=== PATIENT | female | born 1935 | race Caucasian/White ===

== ENCOUNTER 2020-01-18 12:02 | Inpatient (IN) | payer MEDICARE, OTHER ==
[2020-01-18] MEDS ORDERED: Polyethylene Glycol 3350 Powder 17 GM Packet PO PRN (12:46)
--- NOTE | 2020-01-18 13:04 | PCM.HP.2 ---
H&P History of Present Illness - General Date of Service: 01/18/20 Admit Problem/Dx: Admission Diagnosis/Problem Admission Diagnosis/Problem Knee joint operation Source of Information: Patient, Old Records History Limitations: Reports: No Limitations - History of Present Illness Initial Comments - Free Text/Narative: Pt here for swing bed admit after undergoing left TKA Pt doing well and here for OT/PT Location: Reports: Lower Extremity, Left Context: Reports: Other (Post-OP) - Related Data Allergies/Adverse Reactions: Allergies Allergy/AdvReac Type Severity Reaction Status Date / Time bacitracin Allergy Cannot Verified 01/18/20 11:59 [From Neosporin Remember ([id number])] neomycin Allergy Cannot Verified 01/18/20 11:59 [From Neosporin Remember ([id number])] polymyxin B Allergy Cannot Verified 01/18/20 11:59 [From Neosporin Remember ([id number])] Home Medications: Home Meds Acetaminophen 650 mg PO Q6HR PRN 01/18/20 [History] Apixaban [Eliquis] 2.5 mg PO Q12HR 01/18/20 [History] Ascorbic Acid [Vitamin C] 500 mg PO DAILY 01/18/20 [History] Calcium Carb/Vit D3/Minerals [Calcium 600+D Plus Minerals] 1 each PO DAILY 01/18 [History] Cholecalciferol (Vitamin D3) [Vitamin D3] 1,000 unit PO DAILY 01/18/20 [History] Escitalopram [Lexapro] 10 mg PO DAILY 01/18/20 [History] Furosemide 20 mg PO DAILY@1600 01/18/20 [History] Glimepiride 1 mg PO DAILY 01/18/20 [History] Losartan [Cozaar] 50 mg PO DAILY 01/18/20 [History] Magnesium 250 mg PO DAILY 01/18/20 [History] Multivitamin [Daily Eri] 1 each PO DAILY 01/18/20 [History] Sennosides/Docusate Sodium [Senna-Docusate Sodium Tablet] 1 each PO BID [History] atorvaSTATin [Lipitor] 20 mg PO BEDTIME 01/18/20 [History] carvediloL [Carvedilol] 12.5 mg PO BIDMEALS 01/18/20 [History] oxyCODONE 5 - 10 mg PO Q6HR PRN 01/18/20 [History] polyethylene glycoL 3350 [MiraLAX] 17 gm PO DAILY PRN 01/18/20 [History] H&P Review of Systems - Review of Systems: Review Of Systems: See Below Pulmonary: Reports: No Symptoms Cardiovascular: Reports: No Symptoms Gastrointestinal: Reports: No Symptoms Musculoskeletal: Reports: Other (Left knee TKA) Skin: Reports: No Symptoms Exam - Exam Exam: See Below - Vital Signs Weight: 203 lb 6.4 oz - Exam General: Alert, Oriented Lungs: Clear to Auscultation Cardiovascular: Regular Rate GI/Abdominal Exam: Soft, Non-Tender Extremities: Other (Left knee dressing intact) *Q Meaningful Use (ADM) - VTE *Q VTE Pharmacological Contraindications *Q: Risk of Bleeding - Problem List (1) S/P total knee arthroplasty SNOMED Code(s): 6373549781489, [id number], [id number] ICD Code: Z96.659 - PRESENCE OF UNSPECIFIED ARTIFICIAL KNEE JOINT Status: Acute Current Visit: Yes Problem List Initiated/Reviewed/Updated: Yes Orders Last 24hrs: Active Orders 24 hr Category Date Time Status Patient Status [ADT] Routine ADT 01/18/20 12:50 Ordered Ambulate [RC] ASDIRECTED Care 01/18/20 12:50 Ordered Ambulate [RC] ASDIRECTED Care 01/18/20 12:50 Ordered Antiembolic Devices [RC] PER UNIT ROUTINE Care 01/18/20 12:55 Ordered Bedrest Bathroom Privileges [RC] ASDIRECTED Care 01/18/20 12:50 Ordered Blood Glucose Check, Bedside [RC] BIDMEALS Care 01/18/20 12:50 Ordered Elevate Extremity [RC] QID Care 01/18/20 12:50 Ordered Height and Weight [RC] PER UNIT ROUTINE Care 01/18/20 12:53 Ordered May Shower [RC] ASDIRECTED Care 01/18/20 12:50 Ordered Oxygen Therapy [RC] PRN Care 01/18/20 12:50 Ordered Up With Assistance [RC] ASDIRECTED Care 01/18/20 12:50 Ordered Up to Chair [RC] ASDIRECTED Care 01/18/20 12:50 Ordered VTE/DVT Education [RC] PER UNIT ROUTINE Care 01/18/20 12:50 Ordered Vital Signs [RC] PER UNIT ROUTINE Care 01/18/20 12:50 Ordered Wound Care [RC] DAILY Care 01/18/20 12:50 Ordered OT Evaluation and Treatment [CONS] Routine Cons 01/18/20 12:50 Ordered PT Evaluation and Treatment [CONS] Routine Cons 01/18/20 12:50 Ordered [employer] Diet [DIET] Diet 01/18/20 Lunch Ordered Acetaminophen [Tylenol] Med 01/18/20 12:46 Ordered 650 mg PO Q6HR PRN Apixaban [Eliquis] Med 01/18/20 20:00 Ordered 2.5 mg PO Q12HR Ascorbic Acid [Vitamin C] Med 01/19/20 08:00 Ordered 500 mg PO DAILY Calcium Carb/Vit D3/Minerals [Calcium 600+D Plus Med 01/19/20 08:00 Ordered Minerals] 1 each PO DAILY Cholecalciferol (Vitamin D3) [Vitamin D3] Med 01/19/20 08:00 Ordered 1,000 unit PO DAILY Docusate Sodium/Sennosides [Senna Plus] Med 01/18/20 18:00 Ordered 1 each PO BID Escitalopram [Lexapro] Med 01/19/20 08:00 Ordered 10 mg PO DAILY Furosemide [Lasix] Med 01/18/20 16:00 Ordered 20 mg PO DAILY@1600 Glimepiride [Glimepiride] Med 01/19/20 08:00 Ordered 1 mg PO DAILY Losartan [Cozaar] Med 01/19/20 08:00 Ordered 50 mg PO DAILY Magnesium [Magnesium] Med 01/19/20 08:00 Ordered 250 mg PO DAILY Multivitamins [Tab-A-Eri] Med 01/19/20 08:00 Ordered 1 each PO DAILY atorvaSTATin [Lipitor] Med 01/18/20 20:00 Ordered 20 mg PO BEDTIME carvediloL [Coreg] Med 01/18/20 17:30 Ordered 12.5 mg PO BIDMEALS oxyCODONE Med 01/18/20 12:46 Ordered 5 - 10 mg PO Q6HR PRN polyethylene glycoL 3350 [MiraLAX] Med 01/18/20 12:46 Ordered 17 gm PO DAILY PRN Antiembolic Hose [OM.PC] Per Unit Routine Oth 01/18/20 12:54 Ordered Ice Therapy [OM.PC] Routine Oth 01/18/20 12:50 Ordered Resuscitation Status Routine Resus Stat 01/18/20 12:50 Ordered Medication Orders Acetaminophen (Tylenol) 650 mg PO Q6HR PRN PRN Reason: Pain Apixaban (Eliquis) 2.5 mg PO Q12HR [facility] Ascorbic Acid (Vitamin C) 500 mg PO DAILY [facility] Carvedilol (Coreg) 12.5 mg PO BIDMEALS [facility] Furosemide (Lasix) 20 mg PO DAILY@1600 [facility] Losartan Potassium (Cozaar) 50 mg PO DAILY [facility] Multivitamins/Minerals/Vitamin C (Tab-A-Eri) tab PO DAILY [facility] Non-Formulary Medication (Atorvastatin [Lipitor]) 20 mg PO BEDTIME [facility] Non-Formulary Medication (Calcium Carb/Vit D3/Minerals [Calcium 600+D Plus Minerals]) 1 each PO DAILY [facility] Non-Formulary Medication (Cholecalciferol (Vitamin D3) [Vitamin D3]) 1,000 unit PO DAILY [facility] Non-Formulary Medication (Escitalopram [Lexapro]) 10 mg PO DAILY [facility] Non-Formulary Medication (Glimepiride [Glimepiride]) 1 mg PO DAILY [facility] Non-Formulary Medication (Magnesium [Magnesium]) 250 mg PO DAILY [facility] Oxycodone HCl (Oxycodone) 5 - 10 mg PO Q6HR PRN PRN Reason: Moderate to Severe Pain Polyethylene Glycol (Miralax) 17 gm PO DAILY PRN PRN Reason: Constipation Senna/Docusate Sodium (Senna Plus) tab PO BID [facility] Assessment/Plan Comment:: Imp: Left knee TKA Plan: Admit to swing bed PT/OT consult
--- OUTSIDE RECORDS SUMMARY | 2020-01-18 13:05 | XMSREPORT ---
:1935 Author Organization [facility] Address [address] [place] [address] [address] [place] [address] Care Team Providers Name Role Phone Eric James MD Primary Care Provider Eric James MD Attributed Provider Reason for Referral Home Health Evaluation (Routine) Status Reason Specialty Diagnoses / Referred By Referred To Procedures Contact Contact New Request Continuity of Diagnoses Total knee replacement status, left Arielle Wiggins [facility], [facility] [address], [place] [address] Scheduling Instructions This referral will be electronically faxed to the home health agency chosen above. Any other follow up with the home health agency should be done per facility policy. Reason for Visit Auth/Cert (Routine) Status Reason Specialty Diagnoses / Procedures Referred By Contact Referred To Contact Diagnoses Unilateral primary osteoarthritis, left knee Marv Almonte MD Procedures ARTHROPLASTY KNEE CONDYLE & [facility] MEDIAL & LAT COMPARTMENTS [facility] [address] [place] [id number] Encounter Details Date Type Department Care Team Description 01/15/2020 - Hospital Encounter [facility] Suzy, S/P total knee 01/18/[address] MD Marv arthroplasty [address] [place] [address] [place], [place] [phone] [id number] [phone] Allergies Active Allergy Reactions Severity Noted Date Comments Aruiqzli-Slfxtjwkqa-Lrkopfbak Rash 04/09/2016 documented as of this encounter (statuses as of 01/18/2020) Medications Medication Sig Dispensed Refills Start End Date Status Date lancets (ACCU-CHEK FOR TESTING 102 box 1 Active FASTCLIX)Indicatio BLOOD SUGAR ONCE 9 ns: Controlled DAILY DX E11.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) blood glucose test FOR TESTING 50 Strip 2 Active strip (ACCU-CHEK BLOOD SUGAR ONCE 9 SMARTVIEW)Indicati DAILY DX ons: Controlled E11.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) Calcium Take 1 tablet by 0 Active Carbonate-Vit mouth 1 time per 0 D-Min day (CALCIUM-VITAMIN D-MINERALS) 600-800 MG-UNIT CHEWIndications: Preventative health care magnesium oxide Take 1 tablet 30 tablet 0 Active 250 mg (250 mg) by 0 tabletIndications: mouth 1 time per Preventative day health care Multiple Vitamin Take 1 tablet by 0 Active (MULTIVITAMIN) mouth 1 time per 0 tabletIndications: day Preventative health care vitamin C, Take 1 tablet 60 tablet 0 Active ascorbic acid, 500 (500 mg) by 0 MG mouth 1 time per tabletIndications: day Preventative health care vitamin D3, Take 1 tablet 30 tablet 0 Active cholecalciferol, (1,000 Units) by 0 1000 units mouth 1 time per tabletIndications: day Preventative health care atorvaSTATin Take 1 tablet 90 tablet 3 Active (LIPITOR) 20 mg (20 mg) by mouth 0 tabletIndications: 1 time per day Hyperlipidemia, unspecified hyperlipidemia type escitalopram Take 1 tablet 90 tablet 3 Active (LEXAPRO) 10 mg (10 mg) by mouth 0 tabletIndications: 1 time per day Mood disorder (HCC) acetaminophen Take 2 tablets 0 Active (TYLENOL) 325 mg (650 mg) by 0 tabletIndications: mouth every 6 Total knee hours as needed replacement for mild pain status, left glimepiride Take 1 tablet (1 90 tablet 3 Active (AMARYL) 1 mg mg) by mouth 1 0 tabletIndications: time a day with Fasting breakfast hyperglycemia polyethylene Take 3 1 Bottle 0 Active glycol (MIRALAX) teaspoonsful (17 0 powderIndications: g) by mouth 1 Total knee time a day as replacement needed for status, right constipation carVEDilol (COREG) Take 1 tablet 0 Active 12.5 mg (12.5 mg) by 0 tabletIndications: mouth 2 times a Essential day with meals hypertension losartan 50 mg Take 1 tablet 0 Active tabletIndications: (50 mg) by mouth 0 Essential 1 time per day hypertension apixaban (ELIQUIS) Take 1 tablet 0 02/02/20 Active 2.5 MG (2.5 mg) by 0 20 tabletIndications: mouth 2 times a Prophylaxis of DVT day for 15 days in Orthopedic Indications: Surgery Prophylaxis of Deep Vein Thrombosis in Orthopedic Surgery oxyCODONE (OXY-IR) Take 1-2 tablets 0 Active 5 mg tablet (5-10 mg) by 0 (immediate mouth every 6 release)Indication hours as needed s: Total knee (1 TABLET FOR replacement MODERATE PAIN, 2 status, left TABLETS FOR SEVERE PAIN) senna-docusate Take 1 tablet by 0 Active sodium mouth 2 times a 0 (SENOKOT-S;PERICOL day HOLD IF BIJAL) 8.6-50 MG LOOSE STOOLS tabletIndications: Total knee replacement status, left polyethylene Take 3 1 Bottle 0 Active glycol (MIRALAX) teaspoonsful (17 0 powderIndications: g) by mouth 1 Total knee time a day as replacement needed for status, left constipation furosemide (LASIX) Take 1 tablet 0 Active 20 mg (20 mg) by mouth 0 tabletIndications: 1 time a day in Chronic systolic the evening MAY CHF (congestive TAKE AN heart failure) ADDITIONAL (HCC) TABLET ONCE DAILY, CALL MD FOR WEIGHT GAIN GREATER THAN 2 POUNDS IN 1 DAY OR 5 POUNDS IN 3 DAYS FOR ADDITIONAL LASIX DOSING magnesium oxide Take 250 mg by 0 01/18/20 Discontinued 250 mg tablet mouth 1 time per 20 (Reorder) day atorvaSTATin Take 1 tablet 90 tablet 3 01/18/20 Discontinued (LIPITOR) 20 mg (20 mg) by mouth 9 20 (Reorder) tabletIndications: 1 time per day Hyperlipidemia, unspecified hyperlipidemia type escitalopram Take 1 tablet 90 tablet 3 01/18/20 Discontinued (LEXAPRO) 10 mg (10 mg) by mouth 9 20 (Reorder) tabletIndications: 1 time per day Mood disorder (HCC) glimepiride Take 1 tablet (1 90 tablet 3 01/18/20 Discontinued (AMARYL) 1 mg mg) by mouth 1 9 20 (Reorder) tabletIndications: time a day with Fasting breakfast hyperglycemia furosemide (LASIX) TAKE ONE TABLET 180 tablet 0 01/18/20 Discontinued 20 mg BY MOUTH ONCE 9 20 (Reorder) tabletIndications: DAILY - MAY TAKE Chronic systolic AN ADDITIONAL CHF (congestive TABLET ONCE heart failure) DAILY FOR 2-3 ([facility]) DAYS NEEDED FOR WEIGHT GAIN losartan 50 mg Take 1 tablet 0 01/18/20 Discontinued tabletIndications: (50 mg) by mouth 9 20 (Reorder) Essential 1 time per day hypertension polyethylene Take 3 1 Bottle 0 01/18/20 Discontinued glycol (MIRALAX) teaspoonsful (17 9 (Reorder) powderIndications: g) by mouth 1 Total knee time a day as replacement needed for status, right constipation acetaminophen Take 1,000 mg by 0 01/18/20 Discontinued (TYLENOL) 500 mg mouth every 6 20 (Stop Taking at tablet hours as needed Discharge) for moderate pain. calcium Take 1 tablet by 0 01/15/20 Discontinued carbonate-vitamin mouth 1 time per 20 (entry level finance D (CALTRATE 600 + day. On hold error) VIT D) 600 mg-200 till provided unit tablet consent from provider Multiple Vitamin Take 1 tablet by 0 01/18/20 Discontinued (MULTIVITAMIN) mouth 1 time per 20 (Reorder) tablet day. carVEDilol (COREG) Take 12.5 mg by 0 01/18/20 Discontinued 12.5 mg tablet mouth 2 times a 20 (Reorder) day with meals vitamin D3, Take 1,000 Units 0 01/18/20 Discontinued cholecalciferol, by mouth 1 time 20 (Reorder) 1000 units tablet per day traMADol (ULTRAM) Take 1 tablet 24 tablet 0 01/18/20 Discontinued 50 mg (50 mg) by mouth 0 20 (Stop Taking at tabletIndications: every 6 hours as Discharge) Chronic pain of needed for left knee moderate pain for up to 6 days Calcium Take 1 tablet by 0 01/18/20 Discontinued Carbonate-Vit mouth 1 time per 20 (Reorder) D-Min day (CALCIUM-VITAMIN D-MINERALS) 600-800 MG-UNIT CHEW vitamin C, Take 500 mg by 0 01/18/20 Discontinued ascorbic acid, 500 mouth 1 time per 20 (Reorder) MG tablet day apixaban (ELIQUIS) Take 1 tablet 30 tablet 0 01/18/20 Discontinued 2.5 MG (2.5 mg) by 0 20 tabletIndications: mouth 2 times a Prophylaxis of DVT day Indications: in Orthopedic Prophylaxis of Surgery Deep Vein Thrombosis in Orthopedic Surgery oxyCODONE (OXY-IR) Take 1 to 2 40 tablet 0 01/18/20 Discontinued 5 mg tablet tablets (5-10 0 20 (immediate mg) by mouth release)Indication every 6 hours as s: Total knee needed for replacement moderate pain or status, left severe pain senna-docusate Take 1 tablet by 30 tablet 0 01/18/20 Discontinued sodium mouth 2 times a 0 20 (SENOKOT-S;PERICOL day BIJAL) 8.6-50 MG tabletIndications: Total knee replacement status, left furosemide (LASIX) Take 1 tablet 0 01/18/20 Discontinued 20 mg (20 mg) by mouth 0 20 (Reorder) tabletIndications: 1 time a day in Chronic systolic the evening MAY CHF (congestive TAKE AN heart failure) ADDITIONAL (HCC) TABLET ONCE DAILY FOR 2DAYS NEEDED FOR WEIGHT GAIN GREATER THAN 2 POUNDS IN 1 DAY OR 5 POUNDS IN 3 DAYS documented as of this encounter (statuses as of 01/18/2020) Active Problems Problem Noted Date Acute blood loss anemia 01/16/2020 Chronic combined systolic and diastolic CHF (congestive heart failure) 2019 S/P total knee arthroplasty 10/23/2019 Diabetes mellitus type 2 without retinopathy 11/07/2018 Age-related nuclear cataract of both eyes 11/07/2018 Posterior vitreous detachment of both eyes 11/07/2018 Hyperopia, bilateral 05/21/2017 Regular astigmatism of both eyes 05/21/2017 Presbyopia 05/21/2017 Chronic systolic CHF (congestive heart failure) 04/02/2017 Encounter for antineoplastic chemotherapy 11/17/2016 Pneumonia 10/26/2016 Pneumonia due to infectious organism 10/23/2016 Bandemia 10/23/2016 Anemia in neoplastic disease 10/23/2016 Essential hypertension 09/29/2016 Fatigue 09/29/2016 Chemotherapy induced neutropenia 08/18/2016 Pleural effusion on right 08/15/2016 Acute respiratory failure with hypoxia 08/15/2016 Hypoxia 08/15/2016 Follicular lymphoma grade III 07/10/2016 Mass of left side of neck 04/10/2016 Cataract 02/27/2016 Diabetes type 2, controlled 08/21/2015 Actinic keratosis 02/24/2011 Screening for thyroid disorder 12/01/2010 Amyloidosis 06/09/2010 Hyperlipidemia 04/13/2006 documented as of this encounter (statuses as of 01/18/2020) Resolved Problems Problem Noted Date Resolved Date Other malaise and fatigue 01/29/2012 08/15/2016 Abdominal pain 02/05/2010 08/15/2016 documented as of this encounter (statuses as of 01/18/2020) Immunizations Name Administration Dates Next Due Influenza Trivalent w/preserv 10/03/2010 FLU VACCINE HIGH DOSE 65YR+(Fluzone) 08/21/2019, 08/25/2018, 08/25/2017, 08/16/2016, 08/23/2015, 08/23/2015, 08/10/2014, 08/28/2013, 08/02/2012, 08/21/2011 Pegfilgrastim 6 Mg/0.6ml 10/01/2016, 09/10/2016 Pneumococcal Conj PCV13 10/24/2015 Pneumococcal Polysaccharide PPSV23 02/12/2011, 10/10/2001 Td(adult)preservative free 12/03/2010 Tetanus Toxoid,not adsorbed 12/14/1997 Zoster Live(Zostavax) 05/06/2012 Zoster Recombinant (Shingrix) 08/04/2019 documented as of this encounter Social History Tobacco Use Types Packs/Day Years Used Date Never Smoker Smokeless Tobacco: Never Used Alcohol Use Drinks/Week oz/Week Comments Yes occass beer Alcohol Habits Answer Date Recorded How often do you have a drink containing alcohol? Monthly or less 10/16/2019 How many drinks containing alcohol do you have on a 1 or 2 10/16/2019 typical day when you are drinking? How often do you have six or more drinks on one Never 10/16/2019 occasion? Physical Activity Answer Date Recorded On average, how many days per week do you engage in moderate to 7 days 2018 strenuous exercise (like walking fast, running, jogging, dancing, swimming, biking, or other activities that cause a light or heavy sweat)? On average, how many minutes do you engage in exercise at this 60 min 2018 level? Sexually Active Control Partners Comments Never Sex Assigned at Date Recorded Not on file Job Start Date Occupation Industry Not on file Not on file Not on file Travel History Travel Start Travel End No recent travel history available. documented as of this encounter Last Filed Vital Signs Vital Sign Reading Time Taken Comments Blood Pressure 110/60 01/18/2020 7:30 AM [employer] Pulse 72 01/18/2020 7:30 AM [employer] Temperature 36.8 C (98.3 F) 01/18/2020 7:30 AM [employer] Respiratory Rate 16 01/18/2020 7:30 AM [employer] Oxygen Saturation 92% 01/18/2020 7:30 AM [employer] Inhaled Oxygen Concentration - - Weight 88.5 kg (195 lb 1.7 oz) 01/15/2020 5:47 AM [employer] Height 176.5 cm (5' 9.5") 01/15/2020 5:47 AM [employer] Body Mass Index 28.4 01/15/2020 5:47 AM [employer] documented in this encounter Functional Status Functional Status Response Date of Assessment Is the person deaf or does he/she have serious difficulty No 01/08/2020 hearing? Is this person blind or does he/she have difficulty No 01/08/2020 seeing even when wearing glasses? Do you have difficulty with walking, balance, climbing No 01/15/2020 stairs, or had a fall in the last 3 months? Does the patient have difficulty dressing or bathing? No 01/08/2020 Because of a physical, mental, or emotional condition; No 01/08/2020 does this person have difficulty doing errands alone such as visiting a doctor's office or shopping? Cognitive Status Response Date of Assessment Because of a physical, mental, or emotional condition; No 01/08/2020 does this person have serious difficulty concentrating, remembering, or making decisions? documented as of this encounter Discharge Summaries Arielle Wiggins APRN-LISA - 01/18/2020 9:43 AM CST Hospital Discharge Summary Attending Physician: Marv Almonte MD Attending Physician Specialty: Orthopedic Surgery Admit Date: 01/15/2020 Discharge Date: 01/18/20 Primary Care Physician: Eric James MD Discharge Diagnoses 1. Status post left total knee arthroplasty 2. Acute blood loss anemia 3. Congestive heart failure 4. Hypertension 5. Diabetes mellitus type 2 6. Hyperlipidemia 7. Mood disorder 8. History of follicular lymphoma grade III 9. Overweight Hospital Course Sybil is postop day 3 from a left total knee arthroplasty. She is doing well. No acute events overnight. She does report her pain is controlled with oral pain medications. Her vital signs are stable. Postop hemoglobin 9.7, creatinine 0.6, GFR greater than 90. She is tolerating a regular diet with no nausea or vomiting. She is voiding well, and has had a bowel movement yesterday. She denies any chest pain, shortness of breath, nausea, headache, and numbness or tingling. She will work with physical and occupational therapy today and discharge to [facility] when cleared by therapies andorthopedics. PT/OT followed and recommend [facility]. Eliquis for dvt prophylaxis per ortho preference. Narcotics prescribed by orthopedics. Reinforced risks of narcotics including but not limited to drowsiness, falls, constipation, respiratory depression, addiction, and . Discussed signs and symptoms of infection including Temperature greater than 100.4. Any increase in redness, drainage, or foul odor from incision. Increased in pain or numbness and tingling. Patient to seek emergency care if any chest pain or shortness of breath. Discussed constipation regimen of MiraLAX and Senokot Patient verbalizes understanding of discharge instructions. LabTests Pending at Discharge Follow-Up Scheduled Contact information for [facility], [facility], [facility] [address] [place] [id number] Next Steps: Follow up Instructions: Staff will provide therapy and services as needed. Preliminary Discharge Medications This list of medications is preliminary and tentative. Please see the After Visit Summary for the final and accurate medication list. Discharge Medication List START taking these medications START: apixaban 2.5 MG tablet Commonly known as: ELIQUIS Dose: 2.5 mg Take 1 tablet (2.5 mg) by mouth 2 times a day for 15 days Indications: Prophylaxis of Deep Vein Thrombosis in Orthopedic Surgery START: oxyCODONE 5 mg tablet (immediate release) Commonly known as: OXY-IR Dose: 5-10 mg Take 1-2 tablets (5-10 mg) by mouth every 6 hours as needed (1 TABLET FOR MODERATE PAIN, 2 TABLETS FOR SEVERE PAIN) START: senna-docusate sodium 8.6-50 MG tablet Commonly known as: SENOKOT-S;PERICOLACE Dose: 1 tablet Take 1 tablet by mouth 2 times a day HOLD IF LOOSE STOOLS CONTINUE taking these medications which have CHANGED CONTINUE: acetaminophen 325 mg tablet Commonly known as: TYLENOL Dose: 650 mg Take 2 tablets (650 mg) by mouth every 6 hours as needed for mild pain What changed: medication strength how much to take reasons to take this CONTINUE: furosemide 20 mg tablet Commonly known as: LASIX Dose: 20 mg Take 1 tablet (20 mg) by mouth 1 time a day in the evening MAY TAKE AN ADDITIONAL TABLET ONCE DAILY,CALL MD FOR WEIGHT GAIN GREATER THAN 2 POUNDS IN 1 DAY OR 5 POUNDS IN 3 DAYS FOR ADDITIONAL LASIX DOSING What changed: how much to take how to take this when to take this additional instructions CONTINUE: * polyethylene glycol powder Commonly known as: MIRALAX Dose: 1 capful Take 3 teaspoonsful (17 g) by mouth 1 time a day as needed for constipation What changed: Another medication with the same name was added. Make sure you understand how and when to take each. CONTINUE: * polyethylene glycol powder Commonly known as: MIRALAX Dose: 1 capful Take 3 teaspoonsful (17 g) by mouth 1 time a day as needed for constipation What changed: You were already taking a medication with the same name, and this prescription was added. Make sure you understand how and when to take each. * This list has 2 medication(s) that are the same as other medications prescribed for you. Read thedirections carefully, and ask your doctor or other care provider to review them with you. CONTINUE taking these medications which have NOT CHANGED CONTINUE: ACCU-CHEK FASTCLIX LANCETS FOR TESTING BLOOD SUGAR ONCE DAILY DX E11.9 CONTINUE: ACCU-CHEK SMARTVIEW FOR TESTING BLOOD SUGAR ONCE DAILY DX E11.9 CONTINUE: atorvaSTATin 20 mg tablet Commonly known as: LIPITOR Dose: 20 mg Take 1 tablet (20 mg) by mouth 1 time per day CONTINUE: Calcium-Vitamin D-Minerals 600-800 MG-UNIT Chew Dose: 1 tablet Take 1 tablet by mouth 1 time per day CONTINUE: carVEDilol 12.5 mg tablet Commonly known as: COREG Dose: 12.5 mg Take 1 tablet (12.5 mg) by mouth 2 times a day with meals CONTINUE: escitalopram 10 mg tablet Commonly known as: LEXAPRO Dose: 10 mg Take 1 tablet (10 mg) by mouth 1 time per day CONTINUE: glimepiride 1 mg tablet Commonly known as: AMARYL Dose: 1 mg Take 1 tablet (1 mg) by mouth 1 time a day with breakfast CONTINUE: losartan 50 mg tablet Dose: 50 mg Take 1 tablet (50 mg) by mouth 1 time per day CONTINUE: magnesium oxide 250 mg tablet Dose: 250 mg Take 1 tablet (250 mg) by mouth 1 time per day CONTINUE: multivitamin tablet Dose: 1 tablet Take 1 tablet by mouth 1 time per day CONTINUE: vitamin C (ascorbic acid) 500 MG tablet Dose: 500 mg Take 1 tablet (500 mg) by mouth 1 time per day CONTINUE: vitamin D3 (cholecalciferol) 1000 units tablet Dose: 1,000 Units Take 1 tablet (1,000 Units) by mouth 1 time per day You might also be taking other medications not listed above. If you have questions about any of your other medications, talk to the person who prescribed them or your Primary Care Provider. STOP taking these medications STOP: traMADol 50 mg tablet Commonly known as: ULTRAM Where to Get Your Medications Information about where to get these medications is not yet available Ask your nurse or doctor about these medications acetaminophen 325 mg tablet apixaban 2.5 MG tablet atorvaSTATin 20 mg tablet Calcium-Vitamin D-Minerals 600-800 MG-UNIT Chew carVEDilol 12.5 mg tablet escitalopram 10 mg tablet furosemide 20 mg tablet glimepiride 1 mg tablet losartan 50 mg tablet magnesium oxide 250 mg tablet multivitamin tablet oxyCODONE 5 mg tablet (immediate release) polyethylene glycol powder polyethylene glycol powder senna-docusate sodium 8.6-50 MG tablet vitamin C (ascorbic acid) 500 MG tablet vitamin D3 (cholecalciferol) 1000 units tablet Temp: 98.3 F (36.8 C) BP: 110/60 Weight: 88.5 kg (195 lb 1.7 oz) SpO2: 92 % Resp: 16 Pulse: 72 Current BMI (>50=increased risk): 28.41 O2 Device: Room Air O2 Flow Rate (L/min): 1 l/min Physical Exam Constitutional: She is oriented to person, place, and time. She appears well- developed and well-nourished. No distress. HENT: Head: Normocephalic and atraumatic. Eyes: Conjunctivae are normal. Neck: Normal range of motion. Cardiovascular: Normal rate, regular rhythm, normal heart sounds and intact distal pulses. Exam reveals no gallop and no friction rub. No murmur heard. Pulmonary/Chest: Effort normal and breath sounds normal. No respiratory distress. She has no wheezes. She has no rales. Abdominal: Soft. Bowel sounds are normal. She exhibits no distension. There is no tenderness. Musculoskeletal: Left knee: She exhibits decreased range of motion. Neurological: She is alert and oriented to person, place, and time. Skin: Skin is warm and dry. She is not diaphoretic. Psychiatric: She has a normal mood and affect. Her behavior is normal. Judgment and thought content normal. Nursing note and vitals reviewed. Procedures Performed and Findings All procedures during admission Procedure(s): LEFT TOTAL KNEE ARTHROPLASTY Consultations Obtained CONSULT INTERNAL MEDICINE Discharge Disposition ADULT Discharge Planning: Home (1, 2) Instructions for after discharge Call 911 and seek emergency care if you experience any chest pain, shortness of breath or if you are coughing up blood Contact your doctor if you develop a temperature of 101 degrees or greater Contact your doctor if you experience any numbness or tingling in your surgical extremity Contact your doctor if you have any pain or swelling in the calf of either leg Contact your doctor if you have any questions in the first week Contact your doctor if you have any redness or warmth around your incision. ( Bruising is normal, expect the area around your incision to be bruised and many different shades of purple/yellow as the healing stages progress) Contact your doctor if you have significant side effects from your pain medications such as rash, itching, upset stomach or vomiting Contact your doctor if you notice any drainage from your incision or if the edges of your incision come apart Contact your doctor if your pain medications are not keeping your pain at a tolerable level Elevate affected extremity Elevate affected extremity for 30 minutes 4 times per day and as needed for swelling. While lying flat in bed or on the sofa, elevate your surgical leg on 2 -3 pillows so it is above the level of your heart. This will help reduce swelling and pain. Swelling is to be expected for the first couple of weeks after an orthopedic surgery. Ice and elevation are important ways to help manage the swelling and pain. Left lower extremity Ice to affected area Ice to affected area: polar care 5 times per day for 30 minutes and as needed for swelling. Assess skin every 2 hrs. Do not apply directly on skin. Left lower extremity Leave dressing on at discharge, then change with occlusive dressing after 3 days, then change every7 days with occlusive dressing until follow up with provider. Purchase dressing from pharmacy at discharge. Next dressing change 01/20 MAY NOT RETURN TO WORK UNTIL AFTER FOLLOW-UP APPOINTMENT No driving No driving until follow-up with your health care provider No tub bath until directed Do not take a tub bath, go swimming, or sit in a hot tub until your doctor tells you that you may do so. No use of alcohol or non-prescription drugs No use of alcohol. Alcohol affects your balance and can be very harmful if taken with pain medications. Also, do not take any non-prescription drugs not listed on your after visit summary without talking with your doctor first. They may cause increased bleeding and other harmful side effects. Resume home diet Walk frequently and gradually increase the distance you are walking Weight bearing status - As tolerated When showering, cover your dressing with waterproof protection such as saran wrap or press and sealand tape so the dressing does not get wet. Medical Decision Making A total of 35 minutes were spent on discharge coordination. This note was created, at least in part, with the use of [employer] Voice Dictation System. Inadvertenttypographical errors, due to software recognition problems, may still exist. documented in this encounter Medications at Time of Discharge Medication Sig Dispensed Refills Start Date End Date Calcium Carbonate-Vit Take 1 tablet by 0 01/18/2020 D-Min (CALCIUM-VITAMIN mouth 1 time per day D-MINERALS) 600-800 MG-UNIT CHEWIndications: Preventative health care magnesium oxide 250 mg Take 1 tablet (250 30 tablet 0 01/18/2020 tabletIndications: mg) by mouth 1 time Preventative health care per day Multiple Vitamin Take 1 tablet by 0 01/18/2020 (MULTIVITAMIN) mouth 1 time per day tabletIndications: Preventative health care vitamin C, ascorbic Take 1 tablet (500 60 tablet 0 01/18/2020 acid, 500 MG mg) by mouth 1 time tabletIndications: per day Preventative health care vitamin D3, Take 1 tablet (1,000 30 tablet 0 01/18/2020 cholecalciferol, 1000 Units) by mouth 1 units tabletIndications: time per day Preventative health care atorvaSTATin (LIPITOR) Take 1 tablet (20 mg) 90 tablet 3 01/18/2020 20 mg tabletIndications: by mouth 1 time per Hyperlipidemia, day unspecified hyperlipidemia type escitalopram (LEXAPRO) Take 1 tablet (10 mg) 90 tablet 3 01/18/2020 10 mg tabletIndications: by mouth 1 time per Mood disorder (HCC) day acetaminophen (TYLENOL) Take 2 tablets (650 0 01/18/2020 325 mg mg) by mouth every 6 tabletIndications: Total hours as needed for knee replacement status, mild pain left glimepiride (AMARYL) 1 Take 1 tablet (1 mg) 90 tablet 3 01/18/2020 mg tabletIndications: by mouth 1 time a day Fasting hyperglycemia with breakfast polyethylene glycol Take 3 teaspoonsful 1 Bottle 0 01/18/2020 (MIRALAX) (17 g) by mouth 1 powderIndications: Total time a day as needed knee replacement status, for constipation right carVEDilol (COREG) 12.5 Take 1 tablet (12.5 0 01/18/2020 mg tabletIndications: mg) by mouth 2 times Essential hypertension a day with meals losartan 50 mg Take 1 tablet (50 mg) 0 01/18/2020 tabletIndications: by mouth 1 time per Essential hypertension day apixaban (ELIQUIS) 2.5 Take 1 tablet (2.5 0 01/18/2020 02/02/2020 MG tabletIndications: mg) by mouth 2 times Prophylaxis of DVT in a day for 15 days Orthopedic Surgery Indications: Prophylaxis of Deep Vein Thrombosis in Orthopedic Surgery oxyCODONE (OXY-IR) 5 mg Take 1-2 tablets 0 01/18/2020 tablet (immediate (5-10 mg) by mouth release)Indications: every 6 hours as Total knee replacement needed (1 TABLET FOR status, left MODERATE PAIN, 2 TABLETS FOR SEVERE PAIN) senna-docusate sodium Take 1 tablet by 0 01/18/2020 (SENOKOT-S;PERICOLACE) mouth 2 times a day 8.6-50 MG HOLD IF LOOSE STOOLS tabletIndications: Total knee replacement status, left furosemide (LASIX) 20 mg Take 1 tablet (20 mg) 0 01/18/2020 tabletIndications: by mouth 1 time a day Chronic systolic CHF in the evening MARCH (congestive heart TAKE AN ADDITIONAL failure) (HCC) TABLET ONCE DAILY, CALL MD FOR WEIGHT GAIN GREATER THAN 2 POUNDS IN 1 DAY OR 5 POUNDS IN 3 DAYS FOR ADDITIONAL LASIX DOSING lancets (ACCU-CHEK FOR TESTING BLOOD 102 box 1 01/27/2019 FASTCLIX)Indications: SUGAR ONCE DAILY DX Controlled diabetes E11.9 mellitus type 2 with complications (HCC) blood glucose test strip FOR TESTING BLOOD 50 Strip 2 01/27/2019 (ACCU-CHEK SUGAR ONCE DAILY SMARTVIEW)Indications: DX E11.9 Controlled diabetes mellitus type 2 with complications (HCC) polyethylene glycol Take 3 teaspoonsful 1 Bottle 0 01/18/2020 (MIRALAX) (17 g) by mouth 1 powderIndications: Total time a day as needed knee replacement status, for constipation left documented as of this encounter Progress Notes Shashi Sullivan PA-C - 01/18/2020 8:45 AM CST Ortho Progress Note Sybil Fitzgerald is a 84yr old female 3 Days Post-Op, Status Post Procedure(s): LEFT TOTAL KNEE ARTHROPLASTY. BP 110/60 | Pulse 72 | Temp 98.3 F (36.8 C) | Resp 16 | Ht 1.765 m (5' 9.5") | Wt 88.5 kg (195 lb 1.7 oz) | SpO2 92% | BMI 28.40 kg/m Lab Results Component Value Date HEMOGLOBIN 9.7 (L) 01/18/2020 Patient doing ok, complains of mild pain. The patient denies nausea. The dressing/incision is clean With scant drainage. Compartments soft and non-tender. Distal NV intact left lower extremity. Plan: Continue cares. Ambulate. Transfer to [facility] in [place]. Arielle Brody, MARIA [employer] SUPERVISOR - 01/17/2020 11:43 AM CST DAILY PROGRESS NOTE Sybil Fitzgerald is a 84yr old female admitted on 01/15/2020 5:06 AM. Impression / Plan 1. Congestive heart failure Continue Coreg, hold if systolic blood pressure less than 100 or heart rate less than 60 Continue Lasix Echocardiogram showed ejection fraction of 35% on 10/02/2019 Creatinine, 0.67, GFR 84 2. Hypertension Continue losartan 3. Diabetes mellitus type 2 Continue glimepiride Low-dose sliding scale insulin 3 times a day with meals, blood sugars before meals and at bedtime Hemoglobin A1c 6.5 10/17/2019 4. Status post left total knee arthroplasty Managed by orthopedics Eliquis 2.5 mg twice daily for 21 more doses for DVT prophylaxis per orthopedic preference Tylenol and tramadol scheduled for pain, oxycodone as needed Postop hemoglobin 10.3 PT/OT following Case management to assist with discharge planning. Physical therapy recommending transitional care unit placement. 5. Hyperlipidemia Continue Lipitor 6. Mood disorder Continue Lexapro 7. History of follicular lymphoma grade III Currently in remission Follows with oncology 8. Overweight Body mass index is 27.99 kg/m. Interval History HPI Sybil is postop day 2 from a left total knee arthroplasty. She is doing fair. She does report pain with ambulation. She currently rates her pain 4-6 out of 10. Her vital signs are stable. Postop creatinine 0.67, GFR 84. She is tolerating a regular diet with no nausea or vomiting. She is voiding well, but has not had a bowel movement. She does report passing flatus. She was given a dose of milk of magnesia this morning. She was also encouraged to try some prune juice. She denies any chest pain, shortness breath, nausea, headache , and numbness or tingling. She will work with physical and occupational therapy today. They're recommending placement in the transitional care unit. Case management working on discharge planning. Review of Systems Review of Systems Constitutional: Negative. HENT: Negative. Eyes: Negative. Respiratory: Negative for chest tightness and shortness of breath. Cardiovascular: Negative for chest pain. Gastrointestinal: Positive for constipation. Negative for nausea. Endocrine: Negative. Genitourinary: Negative for difficulty urinating. Musculoskeletal: Positive for arthralgias. Skin: Negative. Neurological: Negative for headaches. Hematological: Negative. Psychiatric/Behavioral: Negative. Physical Exam Vital Signs: Temp: 97.4 F (36.3 C) | BP: 121/62 | Pulse: 70 | Resp: 17 | Pain Ratin (out of 10) | Weight: 88.5 kg (195 lb 1.7 oz) | O2 Device: NC - no humidity O2 Flow Rate (L/min): 1 l/min | SpO2: 94 % Maximum Temperatures (last 24 hours) Temperature Maximum Max Temp 97.9 F (36.6 C) Intake and Output: 01/16 0700 - 01/17 0659 In: 480 [Oral:480] Out: 1000 [Urine:1000] Physical Exam Constitutional: She is oriented to person, place, and time. She appears well- developed and well-nourished. No distress. HENT: Head: Normocephalic and atraumatic. Eyes: Conjunctivae are normal. Cardiovascular: Normal rate, regular rhythm, normal heart sounds and intact distal pulses. Exam reveals no gallop and no friction rub. No murmur heard. Pulmonary/Chest: Effort normal and breath sounds normal. No respiratory distress. She has no wheezes. She has no rales. Abdominal: Soft. Bowel sounds are normal. She exhibits no distension. There is no guarding. Musculoskeletal: Left knee: She exhibits decreased range of motion. Neurological: She is alert and oriented to person, place, and time. Skin: Skin is warm and dry. She is not diaphoretic. Psychiatric: She has a normal mood and affect. Her behavior is normal. Judgment and thought content normal. Nursing note and vitals reviewed. Labs Labs (Last day) 01/17/20 0535 - 01/17/20 0535 CHEMISTRY 01/17/20 0535 CHEMISTRY Glucose 70-100 (mg/dL) 103 Sodium 135-145 (meq/L) 140 Potassium 3.5-5.3 (meq/L) 3.6 Chloride 99-110 (meq/L) 106 CO2 20-29 (meq/L) 26 Anion Gap with K 6-20 (meq/L) 12 BUN 6-22 (mg/dL) 13 Creatinine 0.60-1.10 (mg/dL) 0.67 BUN/Creatinine Ratio 10.0-25.0 19.4 Calcium 8.5-10.5 (mg/dL) 8.9 eGFR >=60 (mL/min/1.73m2) >90 eGFR Non- >=60 (mL/min/1.73m2) 84 01/17/20 1126 - 01/16/20 1719 GLUCOSE POINT OF CARE 01/17/20 1126 01/17/20 0612 01/16/20 2042 01/16/20 1719 GLUCOSE POINT OF CARE Glucose POC 70-100 (mg/dL) 147 89 159 109 01/17/20 0535 - 01/17/20 0535 OTHER 01/17/20 0535 OTHER Age (Years) 84 Medical Decision making MDM Reviewed: previous chart, vitals and nursing note Reviewed previous: labs Interpretation: labs This note was created, at least in part, with the use of [employer] Voice Dictation System. Inadvertenttypographical errors, due to software recognition problems, may still exist. Shashi Smith PA-C - 01/17/2020 9:42 AM CST Ortho Progress Note Sybil Fitzgerald is a 84yr old female 2 Days Post-Op, Status Post Procedure(s): LEFT TOTAL KNEE ARTHROPLASTY. BP 121/62 | Pulse 70 | Temp 97.4 F (36.3 C) | Resp 17 | Ht 1.765 m (5' 9.5") | Wt 88.5 kg (195 lb 1.7 oz) | SpO2 94% | BMI 28.40 kg/m Lab Results Component Value Date HEMOGLOBIN 10.3 (L) 01/16/2020 Patient doing ok, complains of mild pain. The patient denies nausea. The dressing/incision is clean With scant drainage. Compartments soft and non-tender. Distal NV intact left lower extremity. Plan: Continue cares. Ambulate has improved but still having pain CM to discuss placement options for her for tomorrow possible? Fadi Gibson MD - 01/16/2020 11:43 AM CST DAILY PROGRESS NOTE Sybil Fitzgerald is a 84yr old female admitted on 01/15/2020 5:06 AM. Impression / Plan Active Problems: S/P total knee arthroplasty Acute blood loss anemia Chronic combined systolic and diastolic CHF (congestive heart failure) (HCC) Resolved Problems: * No resolved hospital problems. * Plan: S/p left total knee arthroplasty -Care as per orthopedics -DVT prophylaxis with Eliquis 2.5 mg twice a day for 24 doses. -Pain management -Bowel regimen -PT/OT Acute blood loss anemia, postoperatively. -Monitor hemoglobin Chronic medical conditions: Chronic combined CHF, no evidence of acute exacerbation -Continue Coreg -Resume Lasix -Resume losartan per parameters Hypertension -Monitor blood pressure closely. -Continue Coreg, resume losartan Hyperlipidemia -Continue Lipitor Diabetes mellitus type 2 -Continue glimepiride -Vxobv-ky-pudb glucose -Sliding scale insulin Depression -Continue Lexapro History of lymphoma -Follows with oncology as outpatient Miscellaneous Full code DVT prophylaxis with apixaban Disposition: Home with home services ([facility]) tomorrow. Interval History HPI No acute events overnight. Patient reports her pain is significantly worse than the pain When She had her right knee done. Denies any chest pain or shortness of breath. Vitals stable. Afebrile. Review of Systems Review of Systems Constitutional: Negative for fever. Respiratory: Negative for cough and shortness of breath. Cardiovascular: Negative for palpitations. Gastrointestinal: Negative for abdominal pain, nausea and vomiting. Musculoskeletal: Positive for arthralgias. Physical Exam Vital Signs: Temp: 97.6 F (36.4 C) | BP: 113/61 | Pulse: 66 | Resp: 17 | Pain Ratin (out of 10) | Weight: 88.5 kg (195 lb 1.7 oz) | O2 Device: Room Air O2 Flow Rate (L/min): 1 l/min | SpO2: 93 % Maximum Temperatures (last 24 hours) Temperature Maximum Max Temp 98 F (36.7 C) Intake and Output: 01/15 0700 - 01/16 0659 In: 3166 [Oral:440] Out: 2800 [Urine:2800] Physical Exam Constitutional: No distress. Cardiovascular: Normal rate, regular rhythm and normal heart sounds. Pulmonary/Chest: Effort normal. She has no wheezes. She has no rales. Abdominal: Soft. Bowel sounds are normal. She exhibits no distension. There is no tenderness. Musculoskeletal: She exhibits tenderness. She exhibits no edema. Neurological: She is alert. Psychiatric: She has a normal mood and affect. Labs Labs (Last day) 01/16/20 0535 - 01/16/20534 CBC 01/16/20534 CBC Hemoglobin 11.5-15.8 (g/dL) 10.3 01/16/20 0535 - 01/16/20534 CHEMISTRY 01/16/20534 CHEMISTRY Glucose 70-100 (mg/dL) 133 Sodium 135-145 (meq/L) 141 Potassium 3.5-5.3 (meq/L) 3.8 Chloride 99-110 (meq/L) 107 CO2 20-29 (meq/L) 23 Anion Gap with K 6-20 (meq/L) 15 BUN 6-22 (mg/dL) 10 Creatinine 0.60-1.10 (mg/dL) 0.67 BUN/Creatinine Ratio 10.0-25.0 14.9 Calcium 8.5-10.5 (mg/dL) 8.9 eGFR >=60 (mL/min/1.73m2) >90 eGFR Non- >=60 (mL/min/1.73m2) 84 01/16/20 1127 - 01/15/20 1627 GLUCOSE POINT OF CARE 01/16/20 1127 01/16/20 0617 01/15/20 1627 GLUCOSE POINT OF CARE Glucose POC 70-100 (mg/dL) 170 130 268 01/16/20 0535 - 01/16/20 0535 OTHER 01/16/20 05 OTHER Age (Years) 84 Medical Decision making Medical Decision Making Shashi Smith PA-C - 01/16/2020 9:54 AM CST Ortho Progress Note Sybil Fitzgerald is a 84yr old female 1 Day Post-Op, Status Post Procedure(s): LEFT TOTAL KNEE ARTHROPLASTY. BP 130/65 | Pulse 67 | Temp 97.3 F (36.3 C) | Resp 16 | Ht 1.765 m (5' 9.5") | Wt 88.5 kg (195 lb 1.7 oz) | SpO2 93% | BMI 28.40 kg/m Lab Results Component Value Date HEMOGLOBIN 10.3 (L) 01/16/2020 Patient doing ok, complains of moderate pain. The patient denies nausea. The dressing/incision is clean With none drainage. Compartments soft and non-tender. Distal NV intact left lower extremity. Plan: Continue cares. Ambulate with assistance. Home tomorrow, keep her on oxycodone today. Loly Holm, PHARM D - 01/15/2020 7:15 AM CST 01/15/2020 7:15 AM -- Patient was seen by the pharmacy med reconciliation team and HOME MEDICATIONS have been reconciled and updated to match the patient's home usage. Medications added: Vitamin C Medications deleted: None Medications changed: None Prior to Admission Medications Prescriptions Last Dose Informant Patient Reported? Taking? Calcium Carbonate-Vit D-Min (CALCIUM-VITAMIN D-MINERALS) 600-800 MG-UNIT CHEW 08/2020 at AM Self Yes Yes Sig: Take 1 tablet by mouth 1 time per day Multiple Vitamin (MULTIVITAMIN) tablet 01/01/2020 at AM Self Yes Yes Sig: Take 1 tablet by mouth 1 time per day. acetaminophen (TYLENOL) 500 mg tablet 01/14/2020 at 2300 Self Yes Yes Sig: Take 1,000 mg by mouth every 6 hours as needed for moderate pain. atorvaSTATin (LIPITOR) 20 mg tablet 01/15/2020 at 0500 Self No Yes Sig: Take 1 tablet (20 mg) by mouth 1 time per day blood glucose test strip (ACCU-CHEK SMARTVIEW) Unknown at Unknown time Self No Yes Sig: FOR TESTING BLOOD SUGAR ONCE DAILY DX E11.9 carVEDilol (COREG) 12.5 mg tablet 01/15/2020 at 0500 Self Yes Yes Sig: Take 12.5 mg by mouth 2 times a day with meals escitalopram (LEXAPRO) 10 mg tablet 01/14/2020 at AM Self No Yes Sig: Take 1 tablet (10 mg) by mouth 1 time per day furosemide (LASIX) 20 mg tablet 01/14/2020 at 1700 Self No Yes Sig: TAKE ONE TABLET BY MOUTH ONCE DAILY - MAY TAKE AN ADDITIONAL TABLET ONCE DAILY FOR 2-3 DAYS NEEDED FOR WEIGHT GAIN Patient taking differently: Take 20 mg by mouth 1 time a day in the evening MAY TAKE AN ADDITIONAL TABLET ONCE DAILY FOR 2-3 DAYS NEEDED FOR WEIGHT GAIN glimepiride (AMARYL) 1 mg tablet 01/14/2020 at AM Self No Yes Sig: Take 1 tablet (1 mg) by mouth 1 time a day with breakfast lancets (ACCU-CHEK FASTCLIX) Unknown at Unknown time Self No Yes Sig: FOR TESTING BLOOD SUGAR ONCE DAILY DX E11.9 losartan 50 mg tablet 01/12/2020 at AM Self Yes Yes Sig: Take 1 tablet (50 mg) by mouth 1 time per day magnesium oxide 250 mg tablet 01/01/2020 at AM Self Yes Yes Sig: Take 250 mg by mouth 1 time per day polyethylene glycol (MIRALAX) powder Greater than 1 Month at Unknown time Self No Yes Sig: Take 3 teaspoonsful (17 g) by mouth 1 time a day as needed for constipation traMADol (ULTRAM) 50 mg tablet 01/14/2020 at AM Self No Yes Sig: Take 1 tablet (50 mg) by mouth every 6 hours as needed for moderate pain for up to 6 days vitamin C, ascorbic acid, 500 MG tablet 01/01/2020 at AM Self Yes Yes Sig: Take 500 mg by mouth 1 time per day vitamin D3, cholecalciferol, 1000 units tablet 01/01/2020 at AM Self Yes Yes Sig: Take 1,000 Units by mouth 1 time per day Facility-Administered Medications: None Maria Antonia WrightD documented in this encounter Plan of Treatment Date Type Specialty Care Team Description 01/26/2020 Office Visit Orthopedics Shashi Sullivan PA-C [address] [place] [address] [phone] 02/27/2020 Office Visit Orthopedics Marv Almonte MD [address] [place] [address] [phone] 02/27/2020 Office Visit Oncology Nadeem Rodriguez MD [address] [place] [address] [phone] Name Type Priority Associated Diagnoses Order Schedule CLINIC REFERRAL HOME Referral Routine Total knee replacement Expected: , HEALTH ADULT ONE CHART status, left Expires: 02/14/2021 documented as of this encounter Implants Implanted Type Area Continuous Improvement Engineer Device Shelf Model / Identifier Expiration Serial / Date Lot Knee Tib Basetrlon Primstry #5 N 5520-B-500 Ea1 - Sn/A Total Jt Right: JUAN 01/18/2024 5520-B-500 / Implanted: Qty: 1 on 10/23/2019 by Marv Almonte MD at [facility] Knee KNEE N/A / [id number] Description:verified by MD and staff Knee Fem Trlon Cr Stry Rt #5 N 5510-F-502 Ea - Sn/A Total Jt Knee Right: KNEE JUAN 06/28/2024 5510-F-502 / Implanted: Qty: 1 on 10/23/2019 by Marv Almonte MD at [facility] N/A / [id number] Description:verified by MD and staff Knee Ptla Sym X3 31x9mm N 5550-G-319 Ea - Sn/A Total Jt Knee Right: KNEE JUAN 08/13/2024 5550-G-319 / Implanted: Qty: 1 on 10/23/2019 by Marv Almonte MD at [facility] N/A / [id number] Description:verified by MD and staff Knee Tib Insrt Crx3 Stry#5-9mm N [id number] Ea1 - Sn/A Total Jt Knee Right : KNEE JUAN 04/19/2024 [id number]-[id number] / Implanted: Qty: 1 on 10/23/2019 by Marv Almonte MD at [facility] N/A / [id number] Description:verified by MD and staff Knee Tib Basetrlon Primstry #5 N 5520-B-500 Ea1 - [id number] Total Jt Knee Left: KNEE JUAN 09/03/2024 5520-B-500 / Implanted: 01/15/2020 by Marv Almonte MD at [facility] ( Quantity not on file) / [id number] Knee Fem Trlon Cr Stry Lft#5 N 5510-F-501 Ea1 - [id number] Total Jt Knee Left : KNEE JUAN 08/06/2024 5510-F-501 / Implanted: 01/15/2020 by Marv Almonte MD at [facility] ( Quantity not on file) / [id number] Knee Ptla Sym X3 31x9mm N [id number] Ea1 - [id number] Total Jt Knee Left: KNEE JUAN 07/02/2024 [id number] / Implanted: 01/15/2020 by Marv Almonte MD at [facility] ( Quantity not on file) / [id number] Knee Tib Insrt Crx3 Stry#5-9mm N [id number] Ea1 - [id number] Total Jt Knee Left: KNEE JUAN 08/06/2024 [id number] / Implanted: 01/15/2020 by Marv Almonte MD at [facility] ( Quantity not on file) / [id number] Cmnt Bone Simplex P Stry N 6191-1-010 Bx10/Ea1 - Sn/A Right: KNEE JUAN 03/21/2021 [id number] / Implanted: Qty: 2 on 10/23/2019 by Marv Almonte MD at [facility] N/A / [id number] Description:verified by MD and staff Cmnt Bone Simplex Tobramyacin N 6197-9- Bx10/Ea1 - [id number] Left: KNEE JUAN 05/21/2020 6197-9-010 / Implanted: 01/15/2020 by Marv Almonte MD at [facility] ( Quantity not on file) / [id number] Cmnt Bone Simplex Tobramyacin N 6197-9- Bx10/Ea1 - [id number] Left: KNEE JUAN 05/21/2020 6197-9-010 / Implanted: 01/15/2020 by Marv Almonte MD at [facility] ( Quantity not on file) / [id number] documented as of this encounter Procedures Procedure Name Priority Date/Time Associated Diagnosis Comments GLUCOSE BY METER, Routine 01/18/2020 6:12 Results for this POCT AM [employer] procedure are in the results section. HEMOGLOBIN Routine 01/18/2020 5:39 Results for this AM [employer] [employer] procedure are in the results section. BASIC METABOLIC Routine 01/18/2020 5:39 Results for this PANEL AM [employer] [employer] procedure are in the results section. GLUCOSE BY METER, Routine 01/17/2020 7:59 Results for this POCT PM [employer] [employer] procedure are in the results section. GLUCOSE BY METER, Routine 01/17/2020 4:53 Results for this POCT PM [employer] [employer] procedure are in the results section. GLUCOSE BY METER, Routine 01/17/2020 11:26 Results for this POCT AM [employer] [employer] procedure are in the results section. GLUCOSE BY METER, Routine 01/17/2020 6:12 Results for this POCT AM [employer] [employer] procedure are in the results section. COLLECT AND HOLD Routine 01/17/2020 5:35 Results for this LAVENDER (EDTA) TOP AM [facility] [employer] procedure are in TUBE the results section. HEMOGLOBIN Routine 01/17/2020 5:35 Results for this AM [employer] [employer] procedure are in the results section. BASIC METABOLIC Routine 01/17/2020 5:35 Results for this PANEL AM [employer] [employer] procedure are in the results section. GLUCOSE BY METER, Routine 01/16/2020 8:42 Results for this POCT PM [employer] procedure are in the results section. GLUCOSE BY METER, Routine 01/16/2020 5:19 Results for this POCT PM [employer] procedure are in the results section. GLUCOSE BY METER, Routine 01/16/2020 11:27 Results for this POCT AM [employer] procedure are in the results section. GLUCOSE BY METER, Routine 01/16/2020 6:17 Results for this POCT AM [employer] [employer] procedure are in the results section. HEMOGLOBIN Routine 01/16/2020 5:35 Results for this AM [employer] procedure are in the results section. BASIC METABOLIC Routine 01/16/2020 5:35 Results for this PANEL AM [employer] [employer] procedure are in the results section. GLUCOSE BY METER, Routine 01/15/2020 4:27 Results for this POCT PM [employer] [employer] procedure are in the results section. GLUCOSE BY METER, Routine 01/15/2020 11:03 Results for this POCT AM [employer] procedure are in the results section. XRAY KNEE 1-2 VIEWS Routine 01/15/2020 9:11 Results for this LT AM [employer] procedure are in the results section. GLUCOSE BY METER, Routine 01/15/2020 8:58 Results for this POCT AM [employer] procedure are in the results section. GLUCOSE BY METER, Routine 01/15/2020 6:41 Results for this POCT AM [employer] procedure are in the results section. 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 documented in this encounter Results GLUCOSE BY METER, POCT (01/18/2020 6:12 AM [employer]) Glucose POC 114 (H) 70 - 100 mg/dL [facility] Specimen Blood Performing Organization Address [facility]/Zipcode Phone Number [facility] [address] [place] [address] BASIC METABOLIC PANEL (01/18/2020 5:39 AM [facility] [employer]) Glucose 95 70 - 100 mg/dL [facility] BUN 10 6 - 22 mg/dL [facility] Creatinine 0.61 0.60 - 1.10 [facility] mg/dL [place] BUN/Creatinine Ratio 16.4 10.0 - 25.0 [facility] Sodium 139 135 - 145 meq/L [facility] Potassium 3.5 3.5 - 5.3 meq/L [facility] Chloride 105 99 - 110 meq/L [facility] CO2 25 20 - 29 meq/L [facility] Anion Gap with K 13 6 - 20 meq/L [facility] Calcium 8.8 8.5 - 10.5 mg/dL [facility] Age 84 Years [facility] eGFR Non- >90 >=60 [facility] [place] mL/min/1.73m2 [facility] eGFR >90 >=60 [facility] mL/min/1.73m2 [place] Specimen Blood Performing Organization Address [facility]/Zipcode Phone Number [facility] [address] [place] [phone] HEMOGLOBIN (01/18/2020 5:39 AM [facility] [employer]) Hemoglobin 9.7 (L) 11.5 - 15.8 g/dL [facility] Specimen Blood Performing Organization Address [facility] Phone Number [facility] [address] [place] [address] GLUCOSE BY METER, POCT (01/17/2020 7:59 PM [facility]) Glucose POC 182 (H) 70 - 100 mg/dL [facility] Specimen Blood Performing Organization Address [facility] Phone Number [facility] [address] [place] [address] GLUCOSE BY METER, POCT (01/17/2020 4:53 PM UNION LABORER) Glucose POC 137 (H) 70 - 100 mg/dL [facility] Specimen Blood Performing Organization Address [facility] Phone Number [facility] [address] [place], [place] [phone] GLUCOSE BY METER, POCT (01/17/2020 11:26 AM UNION LABORER) Glucose POC 147 (H) 70 - 100 mg/dL [facility] Specimen Blood Performing Organization Address [facility] Phone Number [facility] [address] [place] [address] GLUCOSE BY METER, POCT (01/17/2020 6:12 AM UNION LABORER) Glucose POC 89 70 - 100 mg/dL [facility] Specimen Blood Performing Organization Address [facility] Phone Number [facility] [address] [place], [place] [phone] HEMOGLOBIN (01/17/2020 5:35 AM UNION LABORER) Hemoglobin 9.9 (L) 11.5 - 15.8 g/dL [facility] Specimen Blood Performing Organization Address [facility] Phone Number [facility] [address] [place], [place] [phone] COLLECT AND HOLD LAVENDER (EDTA) TOP TUBE (01/17/2020 5:35 AM UNION LABORER) Collect and Hold Comment: RECEIVED [facility] Specimen Blood Performing Organization Address [facility]otn Phone Number [facility] [address] [place] [address] BASIC METABOLIC PANEL (01/17/2020 5:35 AM UNION LABORER) [facility] Glucose 103 (H) 70 - 100 mg/dL [facility] BUN 13 6 - 22 mg/dL [facility] Creatinine 0.67 0.60 - 1.10 [facility] mg/dL [place] BUN/Creatinine Ratio 19.4 10.0 - 25.0 [facility] Sodium 140 135 - 145 meq/L [facility] Potassium 3.6 3.5 - 5.3 meq/L [facility] Chloride 106 99 - 110 meq/L [facility] CO2 26 20 - 29 meq/L [facility] Anion Gap with K 12 6 - 20 meq/L [facility] Calcium 8.9 8.5 - 10.5 [facility] mg/dL [place] Age 84 Years [facility] eGFR Non- 84 >=60 [facility] mL/min/1.73m2 [place] eGFR >90 >=60 [facility] mL/min/1.73m2 [place] Specimen Blood Performing Organization Address [facility] Phone Number [facility] [address] [place] [address] GLUCOSE BY METER, POCT (01/16/2020 8:42 PM UNION LABORER) [facility] Glucose POC 159 (H) 70 - 100 mg/dL [facility] Specimen Blood Performing Organization Address City/[facility]/Zipcode Phone Number [facility] [address] [place] [address] GLUCOSE BY METER, POCT (01/16/2020 5:19 PM UNION LABORER) [facility] Signature Glucose POC 109 (H) 70 - 100 mg/dL [facility] Specimen Blood Performing Organization Address City/[facility]/Zipcode Phone Number [facility] [address] [place] [address] GLUCOSE BY METER, POCT (01/16/2020 11:27 AM UNION LABORER) Glucose POC 170 (H) 70 - 100 mg/dL [facility] Specimen Blood Performing Organization Address [facility] Phone Number [facility] [address] [place] [phone] GLUCOSE BY METER, POCT (01/16/2020 6:17 AM UNION LABORER) Glucose POC 130 (H) 70 - 100 mg/dL [facility] Specimen Blood Performing Organization Address [facility] Phone Number [facility] [address] [place] [phone] BASIC METABOLIC PANEL (01/16/2020 5:35 AM UNION LABORER) Glucose 133 (H) 70 - 100 mg/dL [facility] BUN 10 6 - 22 mg/dL [facility] Creatinine 0.67 0.60 - 1.10 [facility] mg/[facility] BUN/Creatinine Ratio 14.9 10.0 - 25.0 [facility] Sodium 141 135 - 145 meq/L [facility] Potassium 3.8 3.5 - 5.3 meq/L [facility] Chloride 107 99 - 110 meq/L [facility] CO2 23 20 - 29 meq/L [facility] Anion Gap with K 15 6 - 20 meq/L [facility] Calcium 8.9 8.5 - 10.5 [facility] mg/dL [place] Age 84 Years [facility] eGFR Non- 84 >=60 [facility] [place] mL/min/1.73m2 [place] eGFR >90 >=60 [facility] mL/min/1.73m2 [place] Specimen Blood Performing Organization Address [facility] Phone Number [facility] [address] [place] [phone] HEMOGLOBIN (01/16/2020 5:35 AM UNION LABORER) Hemoglobin 10.3 (L) 11.5 - 15.8 g/dL [facility] Specimen Blood Performing Organization Address City/[facility] Phone Number [facility] [address] [place] [phone] GLUCOSE BY METER, POCT (01/15/2020 4:27 PM UNION LABORER) Glucose POC 268 (H) 70 - 100 mg/dL [facility] Specimen Blood Performing Organization Address City/[facility]/Zipcode Phone Number [facility] [address] [place], [place] [phone] GLUCOSE BY METER, POCT (01/15/2020 11:03 AM UNION LABORER) Glucose POC 136 (H) 70 - 100 mg/dL [facility] Specimen Blood Performing Organization Address City/[facility]/Zipcode Phone Number [facility] [address] [place] [phone] XRAY KNEE 1-2V - LT (01/15/2020 9:11 AM UNION LABORER) Specimen Narrative Performed At [facility] Patient Name: SYBIL FITZGERALD Date of :1935 Procedure: XRAY KNEE 1-2 VIEWS LT Date of Service: 01/15/2020 EXAM: XRAY KNEE 1-2 VIEWS LT INDICATION: postop total knee COMPARISON: 01/02/2020 TECHNIQUE: 2 view left knee FINDING/IMPRESSION: Interval left total knee arthroplasty with patellar resurfacing. Alignment is standard. No immediate complication. Postoperative changes in the soft tissues. Finalized by: Mitch Torres MD on 01/15/2020 9:21 AM UNION LABORER Patient/Procedure Information: [facility] MRN/ALEXUS: [id number] Order Number: [id number] Accession Number: [id number] Ordering Provider: SHASHI SULLIVAN Authorizing Provider: SHASHI SULLIVAN Procedure Note Interface, Radiantres - 01/15/2020 9:23 AM UNION LABORER Patient Name: SYBIL FITZGERALD Date of : 1935 Procedure: XRAY KNEE 1-2 VIEWS LT Date of Service: 01/15/2020 EXAM: XRAY KNEE 1-2 VIEWS LT INDICATION: postop total knee COMPARISON: 01/02/2020 TECHNIQUE: 2 view left knee FINDING/IMPRESSION: Interval left total knee arthroplasty with patellar resurfacing. Alignment is standard. No immediate complication. Postoperative changes in the soft tissues. Finalized by: Mitch Torres MD on 01/15/2020 9:21 AM UNION LABORER Patient/Procedure Information: [facility] MRN/ALEXUS: [id number] Order Number: [id number] Accession Number: [id number] Ordering Provider: SHASHI SULLIVAN Authorizing Provider: SHASHI SULLIVAN Performing Organization Address [facility] Phone Number [id number] GLUCOSE BY METER, POCT (01/15/2020 8:58 AM UNION LABORER) Glucose POC 94 70 - 100 mg/dL [facility] Specimen Blood Performing Organization Address [facility] Phone Number [facility] [address] [place] [address] GLUCOSE BY METER, POCT (01/15/2020 6:41 AM UNION LABORER) Glucose POC 89 70 - 100 mg/dL [facility] Specimen Blood Performing Organization Address [facility] Phone Number [facility] [address] [place], [place] [phone] TISSUE EXAM (01/15/2020 6:30 AM UNION LABORER) FINAL DIAGNOSIS Bone and soft tissue, left knee, arthroplasty: [facility] Electronically signed - Bone fragments with changes grossly consistent with degenerative joint disease, and soft tissue fragments without gross pathological abnormality ( gross examination only; see gross description). CLINIC by Freddie Arenas MD on 01/16/2020 at [place]:pf 8:35 AM GROSS DESCRIPTION Received in formalin labeled "left knee bone and tissue" is a 14.8 x 14.3 x 1.4 cm aggregate of multiple yellow-jenkins bone and soft tissue fragments, including the tibial plateau and femoral condyles. The [facility] patella is present. The articular surfaces show areas of eburnation, osteophyte formation and focal pitting. The specimen is for gross only diagnosis, no sections are submitted. CLINIC MS:pf CASE REPORT Surgical Pathology Report Case: [id number] [facility] Authorizing Provider:Marv Almonte MDCollected: 01/15/2020 0630 CLINIC Ordering Location: [facility] Received: 01/15/2020 0851 Pathologist: Freddie Arenas MD Specimen:Knee, left knee bone et tissue EMBEDDED IMAGES [facility] Specimen Tissue Performing Organization Address City/State/Zipcode Phone Number [facility] [address] [place] [address] documented in this encounter Visit Diagnoses Diagnosis Total knee replacement status, left - Primary Primary osteoarthritis of left knee Primary localized osteoarthrosis, lower leg Hyperlipidemia, unspecified hyperlipidemia type Mood disorder (HCC) Unspecified episodic mood disorder Chronic systolic CHF (congestive heart failure) (HCC) Chronic systolic heart failure Fasting hyperglycemia Impaired fasting glucose Total knee replacement status, right Essential hypertension Unspecified essential hypertension Preventative health care Routine general medical examination at a health care facility Acute blood loss anemia Acute posthemorrhagic anemia 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 documented in this encounter Discharge Diagnoses Not on filedocumented in this encounter Administered Medications Medication Order MAR Action Action Date Dose Rate Site acetaminophen (TYLENOL) tablet Given 01/18/2020 6:08 AM UNION LABORER 650 mg 650 mg 650 mg, Oral, Every six hours, First dose on Wed01/15/20 at 1200, Until Discontinued, Post - Op, Alternate with tramadol (ULTRAM); Total dose of acetaminophen from all acetaminophen containing products should not exceed 4 grams (4000 mg) per day., Given 01/17/2020 11:34 PM UNION LABORER 650 mg Given 01/17/2020 6:22 PM UNION LABORER 650 mg apixaban (ELIQUIS) tablet 2.5 mg Given 01/18/2020 8:00 AM UNION LABORER 2.5 mg 2.5 mg, Oral, Two times a day, 24 doses, First dose on Wed01/16/20 at 0800, Last dose on Wed01/27/20 at 2000, Post - Op Given 01/17/2020 7:52 PM UNION LABORER 2.5 mg Given 01/17/2020 7:45 AM UNION LABORER 2.5 mg atorvaSTATin (LIPITOR) tablet 20 mg Given 01/18/2020 8:00 AM UNION LABORER 20 mg 20 mg, Oral, DAILY, First dose on Wed01/16/20 at 0900, Until Discontinued Given 01/17/2020 9:24 AM UNION LABORER 20 mg Given 01/16/2020 8:34 AM UNION LABORER 20 mg carbohydrate 15 g 15 g, Oral, PRN per parameter, Starting Wed01/15/20 at 1047, Until Discontinued , low blood glucose, Give 15 grams of carbohydrate if blood glucose is less than 70 mg/dL, patient is responsive and able to take food or oral meds. Recheck blood glucose in 15 minutes. Repeat 1 time and call MD. If recheck is greater than 70 mg/dL and able to take food or oral meds, give 15 gram carbohydrate if meal or snack due in more than an hour. Serve meal or snack if due in less than 1 hour. See hypoglycemia treatment on cardex. Sources of 15 grams carbohydrate: a. 4 oz of fruit juice or b. 4 oz of soda pop (NOT diet) or c. 1 tablespoon of honey , carVEDilol (COREG) tablet 12.5 mg Given 01/18/2020 8:00 AM UNION LABORER 12.5 mg 12.5 mg, Oral, Two times a day with meals, First dose on Wed01/15/20 at 1730, Until Discontinued, Take with food. Hold for SBP less than 100 Hold for HR less than 60 Take with food., Given 01/17/2020 7:45 AM UNION LABORER 12.5 mg Given 01/16/2020 5:36 PM UNION LABORER 12.5 mg dextrose 50% IV solution 50 mL 50 mL (25 g), IV, PRN per parameter, Starting Wed01/15/20 at 1047, Until Discontinued, low blood glucose, 50 mL, Give if blood glucose is less than 70 mg/dL, patient is unresponsive or NPO, and has IV access. Recheck blood glucose in 15 minutes and call MD. Repeat dose if recheck less than 70 mg/dL and call MD. If recheck is greater than 70 mg/dL and able to take food or oral meds, give 15 gram carbohydrate if meal or snack due in more than an hour. Serve meal or snack if due in less than 1 hour. See hypoglycemia treatment on cardex., dextrose chewable tablet 16 g 16 g (4 tablet), Oral, PRN per parameter, Starting Wed01/15/20 at 1047, Until Discontinued, low blood glucose, Chew before swallowing. Give 15 gram of carbohydrate if blood glucose is less than 70 mg/dL, patient is responsive and able to take food or oral meds. Recheck blood glucose in 15 minutes. Repeat 15 gram carbohydrate if recheck is less than 70 mg/dL and call MD. If recheck is greater than 70 mg/dL and able to take food or oral meds, give 15 gram carbohydrate if meal or snack due in more than an hour. Serve meal or snack if due in less than 1 hour. See hypoglycemia treatment on cardex. (Sources of 15 gram carbohydrate: 4 oz fruit juice or 4 oz soda pop (NOT diet) or 1 tablespoonful honey or 4 glucose tablets )., escitalopram (LEXAPRO) tablet 10 mg Given 01/18/2020 8:00 AM UNION LABORER 10 mg 10 mg, Oral, DAILY, First dose on Wed01/16/20 at 0900, Until Discontinued Given 01/17/2020 9:24 AM UNION LABORER 10 mg Given 01/16/2020 8:34 AM UNION LABORER 10 mg furosemide (LASIX) tablet 20 mg Given 01/16/2020 4:29 PM UNION LABORER 20 mg 20 mg, Oral, Every evening, First dose on Wed01/16/20 at 1600, Until Discontinued, Hold for SBP less than 100, glimepiride (AMARYL) tablet 1 mg Given 01/18/2020 8:00 AM UNION LABORER 1 mg 1 mg, Oral, One time a day with breakfast, First dose on Wed01/16/20 at 0800, Until Discontinued, Give with food., Given 01/17/2020 7:45 AM UNION LABORER 1 mg Given 01/16/2020 8:34 AM UNION LABORER 1 mg glucagon for injection 1 mg vial 1 mg 1 mg, Intramuscular, PRN per parameter, Starting Wed01/15/20 at 1047, Until Discontinued, low blood glucose, Give if blood glucose less than 70 mg/dL, patient is unresponsive or NPO, and has no IV access. Establish IV access. Recheck blood glucose in 15 minutes and call MD. If recheck is greater than 70 mg/dL and able to take food or oral meds, give 15 gram carbohydrate if meal or snack due in more than an hour. Serve meals or snack if due in less than 1 hour. See hypoglycemia treatment on cardex. Reconstitute vial with 1 mL of sterile water for injection for reconstitution for a final concentration of 1 mg/mL. Shake vial gently. Use immediately and discard unused portion. Reconstitute with 1 mL of sterile water for injection to yield 1 mg/mL. Shake vial gently. Use immediately and discard unused portion., insulin aspart (NovoLOG) SQ correction Given 01/16/2020 11:43 AM UNION LABORER 2 Units scale (Adult) 2-8 Units, Subcutaneous, Three times a day, First dose on Wed01/15/20 at 1130, Until Discontinued, 0.08 mL, Give this dose whether patient is eating or patient is NPO LOW DOSE insulin aspart (NovoLOG) subcutaneous correction scale Premeal Blood Glucose=Insulin Dose 150-199 2 units 200-249 3 units 250-299 5 units 300-349 7 units Over 349 8 units, Given 01/15/2020 5:57 PM UNION LABORER 5 Units losartan tablet 50 mg Given 01/18/2020 8:00 AM UNION LABORER 50 mg 50 mg, Oral, DAILY, First dose on Wed01/17/20 at 0900, Until Discontinued, Hold for SBP less than 100, Given 01/17/2020 9:23 AM UNION LABORER 50 mg magnesium hydroxide (MILK OF MAGNESIA) oral Given 01/17/2020 9:33 AM UNION LABORER 30 mL suspension 30 mL 30 mL, Oral, Two times a day prn, Starting Wed01/15/20 at 1041, Until Discontinued, constipation, 30 mL, Post - Op, FIRST choice or per patient preference. Exception: Nephrology/renal patients, oxyCODONE (OXY-IR) tablet 5-10 mg Given 01/18/2020 9:53 AM UNION LABORER 5 mg 5-10 mg, Oral, Every four hours prn, Starting 01/15/20 at 1041, Until Discontinued, moderate pain, severe pain, Post - Op, For patients with moderate pain, pain rating of 4-6, give Oxycodone 5mg PO every 4 hours PRN. For patients with severe pain, pain rating of 7-10, give Oxycodone 10mg PO every 4 hours PRN., Given 01/18/2020 3:30 AM UNION LABORER 10 mg Given 01/17/2020 6:15 AM UNION LABORER 10 mg polyethylene glycol (MIRALAX) packet 1 Given 01/18/2020 8:01 AM UNION LABORER 1 packet packet 1 packet, Oral, Daily, First dose on Wed01/16/20 at 0900, Until Discontinued, Post - Op, Hold if 2 loose stools occur in the last 24 hours., Given 01/17/2020 9:20 AM UNION LABORER 1 packet Given 01/16/2020 8:34 AM UNION LABORER 1 packet senna-docusate sodium Given 01/18/2020 8:01 AM UNION LABORER 1 tablet (SENOKOT-S;PERICOLACE) tablet 1 tablet 1 tablet, Oral, Two times a day, First dose on Wed01/15/20 at 2100, Until Discontinued, Post - Op, Hold if 2 loose stools occur in the last 24 hours., Given 01/17/2020 7:53 PM UNION LABORER 1 tablet Given 01/17/2020 9:20 AM UNION LABORER 1 tablet sodium chloride 0.9% flush (adult) 10 mL Given 01/18/2020 8:01 AM UNION LABORER 10 mL 10 mL, IV, Two times a day and prn, First dose on Wed01/15/20 at 2100, Until Discontinued, 10 mL, Post - Op, Flush IV line as scheduled and as often as necessary before and after meds., Given 01/17/2020 7:53 PM UNION LABORER 10 mL Given 01/17/2020 9:24 AM UNION LABORER 10 mL traMADol (ULTRAM) tablet 50 mg Given 01/18/2020 8:45 AM UNION LABORER 50 mg 50 mg, Oral, Every six hours, First dose on Wed01/15/20 at 1500, Until Discontinued, Post - Op, Alternate with acetaminophen (TYLENOL). Recommended maximum daily dose of [id number]=430 mg. Recommended maximum daily dose in patients greater than 75 years of age=300 mg, Given 01/18/2020 3:17 AM UNION LABORER 50 mg Given 01/17/2020 7:53 PM UNION LABORER 50 mg Medication Order MAR Action Action Date Dose Rate Site acetaminophen (TYLENOL) tablet Given 01/15/2020 6:31 AM UNION LABORER 1,000 mg 1,000 mg 1,000 mg, Oral, Pre-op, 1 dose, Wed01/15/20 at 0540, Pre - Op, Total dose of acetaminophen from all acetaminophen containing products should not exceed 4 grams (4000 mg) per day., ceFAZolin (ANCEF) 2000 mg/20 mL sterile Given 01/15/2020 11:57 PM UNION LABORER 2,000 mg water IV syringe 2,000 mg, IV, Every eight hours, 2 doses, First dose on Wed01/15/20 at 1530, Last dose on Wed01/15/20 at 2330, 20 mL, PACU - Continue Post-Op, Administer as IV push over 4 minutes., Given 01/15/2020 2:51 PM UNION LABORER 2,000 mg dexamethasone sodium phosphate 5 mg in Given 01/15/2020 9:17 AM UNION LABORER ropivacaine 0.5 % 150 mg Peripheral Nerve Block Injection Syringe Perineural, Now, 1 dose, Wed01/15/20 at 1025, 30.5 mL, Pre - Op, Inject 5-10 mL per administration as directed by Anesthesia with a total maximum of 40 mL, gabapentin (NEURONTIN) capsule 600 mg Given 01/15/2020 6:31 AM UNION LABORER 600 mg 600 mg, Oral, Pre-op, 1 dose, Wed01/15/20 at 0540, Pre - Op, 1 dose prior to surgery, lactated ringers IV solution New Bag 01/15/2020 8:17 AM UNION LABORER IV, at 25 mL/hr, Continuous, Starting Wed01/15/20 at 0640, Until Wed01/15/20 at 0847, 1,000 mL, Pre - Op New Bag 01/15/2020 6:18 AM UNION LABORER 25 mL/hr lactated ringers IV solution Already Infusing 01/15/2020 8:48 AM UNION LABORER 125 mL/hr IV, at 125 mL/hr, Continuous, Starting Wed01/15/20 at 0900, Until Wed01/15/20 at 1032, 1,000 mL, PACU, TKO current fluids if patient is going to Day Unit / ARU and tolerating PO fluids without nausea., sodium chloride 0.9% IV solution New Bag 01/15/2020 10:58 AM UNION LABORER 75 mL/hr IV, at 75 mL/hr, Continuous, Starting Wed01/15/20 at 1045, Until Wed01/15/20 at 1457, 1,000 mL, Post - Op traMADol (ULTRAM) tablet 100 mg Given 01/15/2020 6:31 AM UNION LABORER 100 mg 100 mg, Oral, Pre-op, 1 dose, Wed01/15/20 at 0540, Pre - Op, Recommended maximum daily dose of wlsprezi=482 mg. Recommended maximum daily dose in patients 75 years or ukwpi=200 mg., documented in this encounter
[2020-01-18] MEDS: oxyCODONE 5 MG Tab PO PRN ×2 (13:16→19:11)
[2020-01-18] MEDS: Furosemide 20 MG Tab PO SCH (16:15)
[2020-01-18] MEDS: Carvedilol 12.5 MG Tab PO SCH (17:19)
[2020-01-18] MEDS: Apixaban 2.5 MG Tab PO SCH (19:08)
[2020-01-18] MEDS: atorvaSTATin 10 MG Tab PO SCH (19:08)
[2020-01-19] MEDS: oxyCODONE 5 MG Tab PO PRN ×4 (02:15→19:28)
[2020-01-19] MEDS: Magnesium Oxide 400 MG Tab PO SCH (07:40)
[2020-01-19] MEDS: Glimepiride 2 MG Tab PO SCH (07:41)
[2020-01-19] MEDS: Calcium Carbonate/Vitamin D3 1500 MG-400 Units Tab PO SCH (07:41)
[2020-01-19] MEDS: Multivitamin Tab PO SCH (07:41)
[2020-01-19] MEDS: Apixaban 2.5 MG Tab PO SCH ×2 (07:41→19:23)
[2020-01-19] MEDS: Carvedilol 12.5 MG Tab PO SCH ×2 (07:41→17:19)
[2020-01-19] MEDS: Escitalopram 20 MG Tab PO SCH (07:41)
[2020-01-19] MEDS: Cholecalciferol (Vitamin D3) 25 MCG Tab PO SCH (07:42)
[2020-01-19] MEDS: Losartan 50 MG Tab PO SCH (07:42)
[2020-01-19] MEDS: Ascorbic Acid 500 MG Tab PO SCH (07:42)
[2020-01-19] MEDS: Furosemide 20 MG Tab PO SCH (15:44)
[2020-01-19] MEDS: Acetaminophen 325 MG Tab PO PRN (17:19)
[2020-01-19] MEDS: atorvaSTATin 10 MG Tab PO SCH (19:23)
[2020-01-20] MEDS: oxyCODONE 5 MG Tab PO PRN ×4 (01:54→21:04)
[2020-01-20] MEDS: Magnesium Oxide 400 MG Tab PO SCH (08:59)
[2020-01-20] MEDS: Escitalopram 20 MG Tab PO SCH (08:59)
[2020-01-20] MEDS: Multivitamin Tab PO SCH (09:00)
[2020-01-20] MEDS: Losartan 50 MG Tab PO SCH (09:00)
[2020-01-20] MEDS: Cholecalciferol (Vitamin D3) 25 MCG Tab PO SCH (09:00)
[2020-01-20] MEDS: Glimepiride 2 MG Tab PO SCH (09:00)
[2020-01-20] MEDS: Carvedilol 12.5 MG Tab PO SCH ×2 (09:01→17:22)
[2020-01-20] MEDS: Calcium Carbonate/Vitamin D3 1500 MG-400 Units Tab PO SCH (09:01)
[2020-01-20] MEDS: Ascorbic Acid 500 MG Tab PO SCH (09:02)
[2020-01-20] MEDS: Apixaban 2.5 MG Tab PO SCH ×2 (09:02→19:45)
[2020-01-20] MEDS: Acetaminophen 325 MG Tab PO PRN ×2 (14:31→21:04)
[2020-01-20] MEDS: Furosemide 20 MG Tab PO SCH (16:19)
[2020-01-20] MEDS: atorvaSTATin 10 MG Tab PO SCH (19:45)
[2020-01-21] MEDS: oxyCODONE 5 MG Tab PO PRN ×4 (03:20→22:52)
[2020-01-21] MEDS: Acetaminophen 325 MG Tab PO PRN ×3 (03:20→19:42)
[2020-01-21] MEDS: Glimepiride 2 MG Tab PO SCH (08:25)
[2020-01-21] MEDS: Magnesium Oxide 400 MG Tab PO SCH (08:25)
[2020-01-21] MEDS: Losartan 50 MG Tab PO SCH (08:26)
[2020-01-21] MEDS: Escitalopram 20 MG Tab PO SCH (08:27)
[2020-01-21] MEDS: Cholecalciferol (Vitamin D3) 25 MCG Tab PO SCH (08:28)
[2020-01-21] MEDS: Apixaban 2.5 MG Tab PO SCH ×2 (08:28→19:42)
[2020-01-21] MEDS: Carvedilol 12.5 MG Tab PO SCH ×2 (08:28→17:20)
[2020-01-21] MEDS: Calcium Carbonate/Vitamin D3 1500 MG-400 Units Tab PO SCH (08:29)
[2020-01-21] MEDS: Ascorbic Acid 500 MG Tab PO SCH (08:29)
[2020-01-21] MEDS: Multivitamin Tab PO SCH (08:29)
[2020-01-21] MEDS: Furosemide 20 MG Tab PO SCH (16:21)
[2020-01-21] MEDS: atorvaSTATin 10 MG Tab PO SCH (19:43)
[2020-01-22] MEDS: Acetaminophen 325 MG Tab PO PRN ×4 (02:48→21:52)
[2020-01-22] MEDS: oxyCODONE 5 MG Tab PO PRN ×3 (05:08→21:52)
[2020-01-22] MEDS: Multivitamin Tab PO SCH (07:55)
[2020-01-22] MEDS: Apixaban 2.5 MG Tab PO SCH ×2 (07:55→21:51)
[2020-01-22] MEDS: Ascorbic Acid 500 MG Tab PO SCH (07:56)
[2020-01-22] MEDS: Magnesium Oxide 400 MG Tab PO SCH (07:56)
[2020-01-22] MEDS: Calcium Carbonate/Vitamin D3 1500 MG-400 Units Tab PO SCH (07:56)
[2020-01-22] MEDS: Escitalopram 20 MG Tab PO SCH (07:56)
[2020-01-22] MEDS: Cholecalciferol (Vitamin D3) 25 MCG Tab PO SCH (07:56)
[2020-01-22] MEDS: Losartan 50 MG Tab PO SCH (07:56)
[2020-01-22] MEDS: Carvedilol 12.5 MG Tab PO SCH ×2 (07:57→17:15)
[2020-01-22] MEDS: Glimepiride 2 MG Tab PO SCH (07:57)
[2020-01-22] MEDS: Furosemide 20 MG Tab PO SCH (12:11)
[2020-01-22] MEDS: atorvaSTATin 10 MG Tab PO SCH (21:51)
[2020-01-23] MEDS: Multivitamin Tab PO SCH (07:48)
[2020-01-23] MEDS: Cholecalciferol (Vitamin D3) 25 MCG Tab PO SCH (07:48)
[2020-01-23] MEDS: Magnesium Oxide 400 MG Tab PO SCH (07:49)
[2020-01-23] MEDS: Ascorbic Acid 500 MG Tab PO SCH (07:49)
[2020-01-23] MEDS: Furosemide 20 MG Tab PO SCH (07:49)
[2020-01-23] MEDS: Apixaban 2.5 MG Tab PO SCH ×2 (07:50→20:07)
[2020-01-23] MEDS: Escitalopram 20 MG Tab PO SCH (07:50)
[2020-01-23] MEDS: Carvedilol 12.5 MG Tab PO SCH ×2 (07:51→17:35)
[2020-01-23] MEDS: Losartan 50 MG Tab PO SCH (07:51)
[2020-01-23] MEDS: Glimepiride 2 MG Tab PO SCH (07:51)
[2020-01-23] MEDS: Calcium Carbonate/Vitamin D3 1500 MG-400 Units Tab PO SCH (07:52)
[2020-01-23] MEDS: oxyCODONE 5 MG Tab PO PRN ×3 (07:55→20:07)
[2020-01-23] MEDS: Acetaminophen 325 MG Tab PO PRN ×3 (11:28→23:40)
[2020-01-23] MEDS: atorvaSTATin 10 MG Tab PO SCH (20:06)
[2020-01-24] MEDS: oxyCODONE 5 MG Tab PO PRN ×2 (02:00→09:03)
[2020-01-24] MEDS: Acetaminophen 325 MG Tab PO PRN (07:01)
[2020-01-24] MEDS: Ascorbic Acid 500 MG Tab PO SCH (07:40)
[2020-01-24] MEDS: Multivitamin Tab PO SCH (07:40)
[2020-01-24] MEDS: Apixaban 2.5 MG Tab PO SCH ×2 (07:40→20:10)
[2020-01-24] MEDS: Magnesium Oxide 400 MG Tab PO SCH (07:40)
[2020-01-24] MEDS: Cholecalciferol (Vitamin D3) 25 MCG Tab PO SCH (07:40)
[2020-01-24] MEDS: Escitalopram 20 MG Tab PO SCH (07:41)
[2020-01-24] MEDS: Carvedilol 12.5 MG Tab PO SCH ×2 (07:41→17:54)
[2020-01-24] MEDS: Furosemide 20 MG Tab PO SCH (07:41)
[2020-01-24] MEDS: Glimepiride 2 MG Tab PO SCH (07:41)
[2020-01-24] MEDS: Calcium Carbonate/Vitamin D3 1500 MG-400 Units Tab PO SCH (07:41)
[2020-01-24] MEDS: Losartan 50 MG Tab PO SCH (07:42)
[2020-01-24] MEDS: Ibuprofen 400 MG Tab PO SCH ×2 (12:05→17:53)
[2020-01-24] MEDS: Acetaminophen 325 MG Tab PO SCH ×2 (16:04→21:55)
[2020-01-24] MEDS: atorvaSTATin 10 MG Tab PO SCH (20:10)
[2020-01-25] MEDS: Ibuprofen 400 MG Tab PO SCH ×2 (00:04→06:06)
[2020-01-25] MEDS: Acetaminophen 325 MG Tab PO SCH ×4 (04:07→22:17)
[2020-01-25] MEDS: Ascorbic Acid 500 MG Tab PO SCH (07:32)
[2020-01-25] MEDS: Glimepiride 2 MG Tab PO SCH (07:32)
[2020-01-25] MEDS: Losartan 50 MG Tab PO SCH (07:33)
[2020-01-25] MEDS: Multivitamin Tab PO SCH (07:33)
[2020-01-25] MEDS: Calcium Carbonate/Vitamin D3 1500 MG-400 Units Tab PO SCH (07:33)
[2020-01-25] MEDS: Cholecalciferol (Vitamin D3) 25 MCG Tab PO SCH (07:33)
[2020-01-25] MEDS: Magnesium Oxide 400 MG Tab PO SCH (07:33)
[2020-01-25] MEDS: Escitalopram 20 MG Tab PO SCH (07:33)
[2020-01-25] MEDS: Apixaban 2.5 MG Tab PO SCH ×2 (07:34→19:24)
[2020-01-25] MEDS: Furosemide 20 MG Tab PO SCH (07:34)
[2020-01-25] MEDS: Carvedilol 12.5 MG Tab PO SCH ×2 (07:34→17:08)
[2020-01-25] MEDS: traMADol 50 MG Tab PO PRN ×2 (07:52→19:57)
[2020-01-25] MEDS: atorvaSTATin 10 MG Tab PO SCH (19:24)
[2020-01-26] MEDS: traMADol 50 MG Tab PO PRN ×2 (01:33→07:44)
[2020-01-26] MEDS: Acetaminophen 325 MG Tab PO SCH ×2 (04:01→09:56)
[2020-01-26 07:35] LABS: CHLORIDE,CL 107 mmol/L (98-107); SODIUM,NA 142 mmol/L (136-145)
[2020-01-26 07:39] LABS: PTT,PARTIAL THROMBOPLSTIN TIME 26.4 SEC (24.5-32.8)
[2020-01-26] MEDS: Apixaban 2.5 MG Tab PO SCH (07:41)
[2020-01-26] MEDS: Furosemide 20 MG Tab PO SCH (07:42)
[2020-01-26] MEDS: Ascorbic Acid 500 MG Tab PO SCH (07:42)
[2020-01-26] MEDS: Cholecalciferol (Vitamin D3) 25 MCG Tab PO SCH (07:42)
[2020-01-26] MEDS: Magnesium Oxide 400 MG Tab PO SCH (07:42)
[2020-01-26] MEDS: Escitalopram 20 MG Tab PO SCH (07:42)
[2020-01-26] MEDS: Glimepiride 2 MG Tab PO SCH (07:42)
[2020-01-26] MEDS: Calcium Carbonate/Vitamin D3 1500 MG-400 Units Tab PO SCH (07:42)
[2020-01-26] MEDS: Multivitamin Tab PO SCH (07:42)
[2020-01-26] MEDS: Losartan 50 MG Tab PO SCH (07:43)
[2020-01-26] MEDS: Carvedilol 12.5 MG Tab PO SCH (07:43)
--- NOTE | 2020-01-26 12:37 | PCM.DCSUM1 ---
Discharge Summary - Hospital Course HPI Initial Comments: See admission H&P Brief History: See admission H&P Diagnosis: Stroke: No Modified Ricardo Scale: No Symptoms at All Modified Ricardo Scale Score: 0 - Discharge Data Discharge Date: 01/26/20 Discharge Disposition: Home, Self-Care 01 Condition: Good - Referral to Home Health Primary Care Physician: Eric James MD - Discharge Diagnosis/Problem(s) (1) Osteoarthritis SNOMED Code(s): 780806571 ICD Code: M19.90 - UNSPECIFIED OSTEOARTHRITIS, UNSPECIFIED SITE Status: Chronic Priority: Medium Problem Details: Note status post left knee total arthroplasty with successful treatment by PT and OT throughout her swing bed care. Close follow-up by her regular providers as an orthopedic surgeon as per discharge instructions. Her arthritis is otherwise stable. PT will be continued on an outpatient basis. Patient already does have home health for medication set up. Qualifiers: Osteoarthritis location: multiple joints Osteoarthritis type: primary Qualified Code(s): M15.0 - Primary generalized (osteo)arthritis (2) Hypertension SNOMED Code(s): 55500497 ICD Code: I10 - ESSENTIAL (PRIMARY) HYPERTENSION Status: Chronic Priority : Medium Problem Details: Stable during her swing bed care. Qualifiers: Hypertension type: essential hypertension Qualified Code(s): I10 - Essential (primary) hypertension (3) Diabetes mellitus SNOMED Code(s): 92240621 ICD Code: E11.9 - TYPE 2 DIABETES MELLITUS WITHOUT COMPLICATIONS Status: Chronic Priority: Medium Problem Details: Accu-Cheks under good control during her swing bed care. Consider glycosylated hemoglobin by her regular providers. Qualifiers: Diabetes mellitus type: type 2 Diabetes mellitus long chain beamer insulin use: without long chain beamer use (4) Hyperlipidemia SNOMED Code(s): 83355114 ICD Code: E78.5 - HYPERLIPIDEMIA, UNSPECIFIED Status: Chronic Priority: Medium Problem Details: Continue current medical therapy. Continue to observe closely by her regular providers. Consider Qualifiers: Hyperlipidemia type: unspecified Qualified Code(s): E78.5 - Hyperlipidemia , unspecified (5) Constipation SNOMED Code(s): 73853376 ICD Code: K59.00 - CONSTIPATION, UNSPECIFIED Status: Chronic Priority: Medium Problem Details: Previous constipation, although some loose stools at the end of her swing bed care secondary to her Dulcolax been given on a regular basis. Medication changed to when necessary. Continue to observe closely by her regular provider with no significant diarrhea at discharge. Qualifiers: Constipation type: chronic idiopathic constipation Qualified Code(s): K59.04 - Chronic idiopathic constipation (6) Hypomagnesemia SNOMED Code(s): 110577071 ICD Code: E83.42 - HYPOMAGNESEMIA Status: Chronic Priority: Medium Problem Details: Magnesium level normal at discharge. Continue to observe closely by her regular provider. (7) Anemia SNOMED Code(s): 724720427 ICD Code: D64.9 - ANEMIA, UNSPECIFIED Status: Chronic Priority: Medium Problem Details: Workup recommended at follow-up as per discharge instructions. Nonsymptomatic at discharge. No evidence of acute GI bleed, etc. despite Eliquis therapy. Note patient did receive some ibuprofen during her care, although this was discontinued prior to discharge. 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 Consider high-protein Glucerna supplements as snacks. (9) Mixed anxiety depressive disorder SNOMED Code(s): 179155295 ICD Code: F41.8 - OTHER SPECIFIED ANXIETY DISORDERS Status: Chronic Priority: Medium Problem Details: Stable during her swing bed care with current medical therapy. - Patient Summary/Data Operative Procedure(s) Performed: Previous status post left knee arthroplasty as per H&P Complications: None Consults: Consultations 01/18/20 12:50 OT Evaluation and Treatment [CONS] Routine PT Evaluation and Treatment [CONS] Routine 01/18/20 13:40 Consult to Case Management/Skilled Nursing Facilities Professional [CONS] Routine Labs Pending at D/C: None Recommended Follow-up Testing/Procedures: As per discharge instructions. Planned Operative Procedure(s) after DC: None Hospital Course: Patient was admitted to our swing bed unit for PT and OT with excellent improvement during her entire hospitalization. No complications with continuation of PT on an outpatient basis. Patient was cautioned about excessive use of Ultram, which he did tolerate well during this hospitalization. - Patient Instructions Diet: Heart Healthy Diet Diet, Other: Diverticulosis, 1800-calorie ADA Activity: As Tolerated (And directed by PT with strict fall precautions) Driving: May Drive Today Showering/Bathing: May Shower Wound/Incision Care: Keep Operative Site/Wound Site Clean and Dry Notify Provider of: Fever, Increased Pain, Swelling and Redness, Drainage, Nausea and/or Vomiting Other/Special Instructions: 1. Followup with your regular provider in 7-10 days as directed for reevaluation and recommended CBC, comprehensive metabolic panel, magnesium level, TIBC panel, ferritin level, vitamin B 12 level, and folic acid level. Bring these discharge instructions with you to that visit. 2. Tylenol 650 mg by mouth every 4 hours when necessary as directed. 3. Otherwise follow-up with your orthopedic surgeon as previously scheduled. 4. Immediately after this visit verify that your cellular telephone's voicemail has been activated and is empty. Also verify that your home telephone's answering machine is operating properly and has space to receive messages. Note that it is sometimes necessary for us to be able to contact you at a later date to discuss your medical care. 5. Please remember that we are ALWAYS here for you and want to answer any questions you may have. Feel free to call the hospital any time and we call you back [facility]. - Discharge Plan *PRESCRIPTION DRUG MONITORING PROGRAM REVIEWED*: Yes *COPY OF PRESCRIPTION DRUG MONITORING REPORT IN PATIENT [place]: Yes Prescriptions/Med Rec: traMADol [Ultram] 50 mg PO Q6HR PRN #20 tablet PRN Reason: Pain (Severe 7-10) Apixaban [Eliquis] 2.5 mg PO Q12HR #16 tablet Home Medications: Home Meds Apixaban [Eliquis] 2.5 mg PO Q12HR 01/18/20 [History] Ascorbic Acid [Vitamin C] 500 mg PO DAILY 01/18/20 [History] Calcium Carb/Vit D3/Minerals [Calcium 600+D Plus Minerals] 1 each PO DAILY 01/18 [History] Cholecalciferol (Vitamin D3) [Vitamin D3] 1,000 unit PO DAILY 01/18/20 [History] Escitalopram [Lexapro] 10 mg PO DAILY 01/18/20 [History] Furosemide 20 mg PO DAILY@1600 01/18/20 [History] Glimepiride 1 mg PO DAILY 01/18/20 [History] Losartan [Cozaar] 50 mg PO DAILY 01/18/20 [History] Magnesium 250 mg PO DAILY 01/18/20 [History] Multivitamin [Daily Eri] 1 each PO DAILY 01/18/20 [History] atorvaSTATin [Lipitor] 20 mg PO BEDTIME 01/18/20 [History] carvediloL [Carvedilol] 12.5 mg PO BIDMEALS 01/18/20 [History] polyethylene glycoL 3350 [MiraLAX] 17 gm PO DAILY PRN 01/18/20 [History] Apixaban [Eliquis] 2.5 mg PO Q12HR #16 tablet 01/26/20 [Rx] traMADol [Ultram] 50 mg PO Q6HR PRN #20 tablet 01/26/20 [Rx] Oxygen Therapy Mode: Room Air - Discharge Summary/Plan Comment DC Time >30 min.: Yes (Coordination of care ) Discharge Summary/Plan Comment: As above. Extensive precautions were given to the patient, who is in agreement with the treatment plan. See Patient Instructions for further treatment and plan. - General Info Date of Service: 01/26/20 Admission Dx/Problem (Free Text: Admission Diagnosis/Problem Admission Diagnosis/Problem 1. Left total knee arthroplasty 2. Osteoarthritis Functional Status: Reports: Pain Controlled, Tolerating Diet, Ambulating (With assistance), Incentive Spirometry. Denies: New Symptoms Numeric/FACES Score: 3 - Review of Systems General: Reports: No Symptoms. Denies: Weakness, Chills, Night Sweats, Appetite (Good) HEENT: Reports: No Symptoms. Denies: Ear Pain, Eye Pain, Headaches, Post Nasal Drip, Sinus Congestion, Sore Throat, Rhinitis, Visual Changes Pulmonary: Reports: No Symptoms. Denies: Shortness of Breath, Pleuritic Chest Pain, Cough, Sputum, Hemoptysis, Wheezing Cardiovascular: Reports: No Symptoms. Denies: Chest Pain, Palpitations, Orthopnea, PND, Edema, Lightheadedness Gastrointestinal: Reports: No Symptoms. Denies: Abdominal Pain, Constipation, Decreased Appetite, Diarrhea, Difficulty Swallowing, Flatus, Hematochezia, Melena, Nausea, Vomiting Genitourinary: Reports: No Symptoms. Denies: Dysuria, Frequency, Burning, Incontinence, Hematuria, Retention, Flank Pain Musculoskeletal: Reports: Joint Pain (Left knee improving slowly with physical therapy). Denies: Neck Pain, Shoulder Pain, Arm Pain, Back Pain, Leg Pain Skin: Reports: Bruising. Denies: Diaphoresis Neurological: Reports: No Symptoms, Difficulty Walking (Improving). Denies: Confusion, Dizziness, Headache, Numbness, Paresthesia, Weakness Psychiatric: Reports: No Symptoms. Denies: Confusion, Depression, Anxiety, Agitation, Hallucinations - Patient Data Vitals - Most Recent: Last Vital Signs Temp 36.9 C 01/26/20 08:00 Pulse 69 01/26/20 08:00 Resp 17 01/26/20 08:00 BP 126/69 01/26/20 08:00 Pulse Ox 93 L 01/26/20 08:00 Vital Signs - 24 hr 01/25/20 01/25/20 01/26/20 17:07 17:08 07:43 Temperature [ 36.4 C Oral] Pulse, 69 69 Peripheral Pulse, 69 Peripheral [ Pulse Oximetry] Respiratory 20 Rate Blood Pressure 134/73 126/69 Blood Pressure 134/73 [Left Upper Arm ] Blood Pressure [Right] O2 Sat by Pulse 98 Oximetry 01/26/20 08:00 Temperature [ 36.9 C Oral] Pulse, Peripheral Pulse, 69 Peripheral [ Pulse Oximetry] Respiratory 17 Rate Blood Pressure Blood Pressure [Left Upper Arm ] Blood Pressure 126/69 [Right] O2 Sat by Pulse 93 L Oximetry Weight - Most Recent: 84.414 kg I&O - Last 24 hours: Intake & Output 01/25/20 01/26/20 01/26/20 22:59 06:59 14:59 Intake Total 420 600 Balance 420 600 Imaging Impressions - Last 24 hrs: None Lab Results - Last 24 hrs: Laboratory Results - last 24 hr 01/25/20 01/26/20 01/26/20 Range/Units 16:33 06:35 06:35 WBC 7.7 (4.0-10.2) K/uL RBC 3.33 L (3.77-5.09) M/uL Hgb 10.1 L (11.7-15.5) g/dL Hct 32.3 L (34.0-46.0) % MCV 97.0 (84.0-98.0) fL MCH 30.3 (28.2-33.3) pg MCHC 31.3 L (31.7-36.0) g/dL RDW 13.1 (11.2-14.1) % Plt Count 344 (150-350) K/uL Neut % (Auto) 74.2 (45.0-80.0) % Lymph % (Auto) 12.9 (10.0-50.0) % [place] % (Auto) 7.8 (2.0-14.0) % Eos % (Auto) 4.4 (0.0-5.0) % Baso % (Auto) 0.7 (0.0-2.0) % Neut # (Auto) 5.68 (1.40-7.00) K/uL Lymph # (Auto) 0.99 (0.50-3.50) K/uL [place] # (Auto) 0.60 (0.00-1.00) K/uL Eos # (Auto) 0.34 (0.00-0.50) K/uL Baso # (Auto) 0.05 (0.00-0.20) K/uL PT 10.3 (9.5-12.0) SEC INR 1.0 APTT 26.4 (24.5-32.8) SEC Sodium (136-145) mmol/L Potassium (3.5-5.1) mmol/L Chloride (98-107) mmol/L Carbon Dioxide (21.0-32.0) mmol/L BUN (7-18) mg/dL Creatinine (0.51-1.17) mg/dL Est Cr Clr Drug Dosing mL/min Estimated GFR (MDRD) mL/min Glucose (74-106) mg/dL POC Glucose 136 H (65-110) mg/dl Uric Acid (2.6-7.2) mg/dL Calcium (8.5-10.1) mg/dL Magnesium (1.8-2.4) mg/dL Total Bilirubin (0.2-1.0) mg/dL AST (15-37) U/L ALT (12-78) U/L Alkaline Phosphatase (46-116) IU/L Total Protein (6.4-8.2) g/dL Albumin (3.4-5.0) g/dL 01/26/20 01/26/20 Range/Units 06:35 07:20 WBC (4.0-10.2) K/uL RBC (3.77-5.09) M/uL Hgb (11.7-15.5) g/dL Hct (34.0-46.0) % MCV (84.0-98.0) fL MCH (28.2-33.3) pg MCHC (31.7-36.0) g/dL RDW (11.2-14.1) % Plt Count (150-350) K/uL Neut % (Auto) (45.0-80.0) % Lymph % (Auto) (10.0-50.0) % [place] % (Auto) (2.0-14.0) % Eos % (Auto) (0.0-5.0) % Baso % (Auto) (0.0-2.0) % Neut # (Auto) (1.40-7.00) K/uL Lymph # (Auto) (0.50-3.50) K/uL [place] # (Auto) (0.00-1.00) K/uL Eos # (Auto) (0.00-0.50) K/uL Baso # (Auto) (0.00-0.20) K/uL PT (9.5-12.0) SEC INR APTT (24.5-32.8) SEC Sodium 142 (136-145) mmol/L Potassium 3.9 (3.5-5.1) mmol/L Chloride 107 (98-107) mmol/L Carbon Dioxide 28.1 (21.0-32.0) mmol/L BUN 8 (7-18) mg/dL Creatinine 0.61 (0.51-1.17) mg/dL Est Cr Clr Drug Dosing 76.89 mL/min Estimated GFR (MDRD) > 60 mL/min Glucose 93 (74-106) mg/dL POC Glucose 94 (65-110) mg/dl Uric Acid 4.4 (2.6-7.2) mg/dL Calcium 9.1 (8.5-10.1) mg/dL Magnesium 1.9 (1.8-2.4) mg/dL Total Bilirubin 0.6 (0.2-1.0) mg/dL AST 18 (15-37) U/L ALT 25 (12-78) U/L Alkaline Phosphatase 110 (46-116) IU/L Total Protein 6.2 L (6.4-8.2) g/dL Albumin 3.1 L (3.4-5.0) g/dL Laboratory Tests 01/18/20 01/19/20 01/19/20 Range/Units 16:57 07:09 17:10 WBC (4.0-10.2) K/uL RBC (3.77-5.09) M/uL Hgb (11.7-15.5) g/dL Hct (34.0-46.0) % MCV (84.0-98.0) fL MCH (28.2-33.3) pg MCHC (31.7-36.0) g/dL RDW (11.2-14.1) % Plt Count (150-350) K/uL Neut % (Auto) (45.0-80.0) % Lymph % (Auto) (10.0-50.0) % [place] % (Auto) (2.0-14.0) % Eos % (Auto) (0.0-5.0) % Baso % (Auto) (0.0-2.0) % Neut # (Auto) (1.40-7.00) K/uL Lymph # (Auto) (0.50-3.50) K/uL [place] # (Auto) (0.00-1.00) K/uL Eos # (Auto) (0.00-0.50) K/uL Baso # (Auto) (0.00-0.20) K/uL PT (9.5-12.0) SEC INR APTT (24.5-32.8) SEC Sodium (136-145) mmol/L Potassium (3.5-5.1) mmol/L Chloride (98-107) mmol/L Carbon Dioxide (21.0-32.0) mmol/L BUN (7-18) mg/dL Creatinine (0.51-1.17) mg/dL Est Cr Clr Drug Dosing mL/min Estimated GFR (MDRD) mL/min Glucose (74-106) mg/dL POC Glucose 121 H 127 H 159 H (65-110) mg/dl Uric Acid (2.6-7.2) mg/dL Calcium (8.5-10.1) mg/dL Magnesium (1.8-2.4) mg/dL Total Bilirubin (0.2-1.0) mg/dL AST (15-37) U/L ALT (12-78) U/L Alkaline Phosphatase (46-116) IU/L Total Protein (6.4-8.2) g/dL Albumin (3.4-5.0) g/dL 01/20/20 01/20/20 01/21/20 Range/Units 07:44 17:08 08:14 WBC (4.0-10.2) K/uL RBC (3.77-5.09) M/uL Hgb (11.7-15.5) g/dL Hct (34.0-46.0) % MCV (84.0-98.0) fL MCH (28.2-33.3) pg MCHC (31.7-36.0) g/dL RDW (11.2-14.1) % Plt Count (150-350) K/uL Neut % (Auto) (45.0-80.0) % Lymph % (Auto) (10.0-50.0) % [place] % (Auto) (2.0-14.0) % Eos % (Auto) (0.0-5.0) % Baso % (Auto) (0.0-2.0) % Neut # (Auto) (1.40-7.00) K/uL Lymph # (Auto) (0.50-3.50) K/uL [place] # (Auto) (0.00-1.00) K/uL Eos # (Auto) (0.00-0.50) K/uL Baso # (Auto) (0.00-0.20) K/uL PT (9.5-12.0) SEC INR APTT (24.5-32.8) SEC Sodium (136-145) mmol/L Potassium (3.5-5.1) mmol/L Chloride (98-107) mmol/L Carbon Dioxide (21.0-32.0) mmol/L BUN (7-18) mg/dL Creatinine (0.51-1.17) mg/dL Est Cr Clr Drug Dosing mL/min Estimated GFR (MDRD) mL/min Glucose (74-106) mg/dL POC Glucose 106 120 H 115 H (65-110) mg/dl Uric Acid (2.6-7.2) mg/dL Calcium (8.5-10.1) mg/dL Magnesium (1.8-2.4) mg/dL Total Bilirubin (0.2-1.0) mg/dL AST (15-37) U/L ALT (12-78) U/L Alkaline Phosphatase (46-116) IU/L Total Protein (6.4-8.2) g/dL Albumin (3.4-5.0) g/dL 01/21/20 01/22/20 01/22/20 Range/Units 17:01 07:24 16:56 WBC (4.0-10.2) K/uL RBC (3.77-5.09) M/uL Hgb (11.7-15.5) g/dL Hct (34.0-46.0) % MCV (84.0-98.0) fL MCH (28.2-33.3) pg MCHC (31.7-36.0) g/dL RDW (11.2-14.1) % Plt Count (150-350) K/uL Neut % (Auto) (45.0-80.0) % Lymph % (Auto) (10.0-50.0) % [place] % (Auto) (2.0-14.0) % Eos % (Auto) (0.0-5.0) % Baso % (Auto) (0.0-2.0) % Neut # (Auto) (1.40-7.00) K/uL Lymph # (Auto) (0.50-3.50) K/uL [place] # (Auto) (0.00-1.00) K/uL Eos # (Auto) (0.00-0.50) K/uL Baso # (Auto) (0.00-0.20) K/uL PT (9.5-12.0) SEC INR APTT (24.5-32.8) SEC Sodium (136-145) mmol/L Potassium (3.5-5.1) mmol/L Chloride (98-107) mmol/L Carbon Dioxide (21.0-32.0) mmol/L BUN (7-18) mg/dL Creatinine (0.51-1.17) mg/dL Est Cr Clr Drug Dosing mL/min Estimated GFR (MDRD) mL/min Glucose (74-106) mg/dL POC Glucose 132 H 104 103 (65-110) mg/dl Uric Acid (2.6-7.2) mg/dL Calcium (8.5-10.1) mg/dL Magnesium (1.8-2.4) mg/dL Total Bilirubin (0.2-1.0) mg/dL AST (15-37) U/L ALT (12-78) U/L Alkaline Phosphatase (46-116) IU/L Total Protein (6.4-8.2) g/dL Albumin (3.4-5.0) g/dL 01/23/20 01/23/20 01/24/20 Range/Units 07:30 16:52 07:03 WBC (4.0-10.2) K/uL RBC (3.77-5.09) M/uL Hgb (11.7-15.5) g/dL Hct (34.0-46.0) % MCV (84.0-98.0) fL MCH (28.2-33.3) pg MCHC (31.7-36.0) g/dL RDW (11.2-14.1) % Plt Count (150-350) K/uL Neut % (Auto) (45.0-80.0) % Lymph % (Auto) (10.0-50.0) % [place] % (Auto) (2.0-14.0) % Eos % (Auto) (0.0-5.0) % Baso % (Auto) (0.0-2.0) % Neut # (Auto) (1.40-7.00) K/uL Lymph # (Auto) (0.50-3.50) K/uL [place] # (Auto) (0.00-1.00) K/uL Eos # (Auto) (0.00-0.50) K/uL Baso # (Auto) (0.00-0.20) K/uL PT (9.5-12.0) SEC INR APTT (24.5-32.8) SEC Sodium (136-145) mmol/L Potassium (3.5-5.1) mmol/L Chloride (98-107) mmol/L Carbon Dioxide (21.0-32.0) mmol/L BUN (7-18) mg/dL Creatinine (0.51-1.17) mg/dL Est Cr Clr Drug Dosing mL/min Estimated GFR (MDRD) mL/min Glucose (74-106) mg/dL POC Glucose 114 H 80 115 H (65-110) mg/dl Uric Acid (2.6-7.2) mg/dL Calcium (8.5-10.1) mg/dL Magnesium (1.8-2.4) mg/dL Total Bilirubin (0.2-1.0) mg/dL AST (15-37) U/L ALT (12-78) U/L Alkaline Phosphatase (46-116) IU/L Total Protein (6.4-8.2) g/dL Albumin (3.4-5.0) g/dL 01/24/20 01/25/20 01/25/20 Range/Units 16:57 07:13 16:33 WBC (4.0-10.2) K/uL RBC (3.77-5.09) M/uL Hgb (11.7-15.5) g/dL Hct (34.0-46.0) % MCV (84.0-98.0) fL MCH (28.2-33.3) pg MCHC (31.7-36.0) g/dL RDW (11.2-14.1) % Plt Count (150-350) K/uL Neut % (Auto) (45.0-80.0) % Lymph % (Auto) (10.0-50.0) % [place] % (Auto) (2.0-14.0) % Eos % (Auto) (0.0-5.0) % Baso % (Auto) (0.0-2.0) % Neut # (Auto) (1.40-7.00) K/uL Lymph # (Auto) (0.50-3.50) K/uL [place] # (Auto) (0.00-1.00) K/uL Eos # (Auto) (0.00-0.50) K/uL Baso # (Auto) (0.00-0.20) K/uL PT (9.5-12.0) SEC INR APTT (24.5-32.8) SEC Sodium (136-145) mmol/L Potassium (3.5-5.1) mmol/L Chloride (98-107) mmol/L Carbon Dioxide (21.0-32.0) mmol/L BUN (7-18) mg/dL Creatinine (0.51-1.17) mg/dL Est Cr Clr Drug Dosing mL/min Estimated GFR (MDRD) mL/min Glucose (74-106) mg/dL POC Glucose 82 107 136 H (65-110) mg/dl Uric Acid (2.6-7.2) mg/dL Calcium (8.5-10.1) mg/dL Magnesium (1.8-2.4) mg/dL Total Bilirubin (0.2-1.0) mg/dL AST (15-37) U/L ALT (12-78) U/L Alkaline Phosphatase (46-116) IU/L Total Protein (6.4-8.2) g/dL Albumin (3.4-5.0) g/dL 01/26/20 01/26/20 01/26/20 Range/Units 06:35 06:35 06:35 WBC 7.7 (4.0-10.2) K/uL RBC 3.33 L (3.77-5.09) M/uL Hgb 10.1 L (11.7-15.5) g/dL Hct 32.3 L (34.0-46.0) % MCV 97.0 (84.0-98.0) fL MCH 30.3 (28.2-33.3) pg MCHC 31.3 L (31.7-36.0) g/dL RDW 13.1 (11.2-14.1) % Plt Count 344 (150-350) K/uL Neut % (Auto) 74.2 (45.0-80.0) % Lymph % (Auto) 12.9 (10.0-50.0) % [place] % (Auto) 7.8 (2.0-14.0) % Eos % (Auto) 4.4 (0.0-5.0) % Baso % (Auto) 0.7 (0.0-2.0) % Neut # (Auto) 5.68 (1.40-7.00) K/uL Lymph # (Auto) 0.99 (0.50-3.50) K/uL [place] # (Auto) 0.60 (0.00-1.00) K/uL Eos # (Auto) 0.34 (0.00-0.50) K/uL Baso # (Auto) 0.05 (0.00-0.20) K/uL PT 10.3 (9.5-12.0) SEC INR 1.0 APTT 26.4 (24.5-32.8) SEC Sodium 142 (136-145) mmol/L Potassium 3.9 (3.5-5.1) mmol/L Chloride 107 (98-107) mmol/L Carbon Dioxide 28.1 (21.0-32.0) mmol/L BUN 8 (7-18) mg/dL Creatinine 0.61 (0.51-1.17) mg/dL Est Cr Clr Drug Dosing 76.89 mL/min Estimated GFR (MDRD) > 60 mL/min Glucose 93 (74-106) mg/dL POC Glucose (65-110) mg/dl Uric Acid 4.4 (2.6-7.2) mg/dL Calcium 9.1 (8.5-10.1) mg/dL Magnesium 1.9 (1.8-2.4) mg/dL Total Bilirubin 0.6 (0.2-1.0) mg/dL AST 18 (15-37) U/L ALT 25 (12-78) U/L Alkaline Phosphatase 110 (46-116) IU/L Total Protein 6.2 L (6.4-8.2) g/dL Albumin 3.1 L (3.4-5.0) g/dL 01/26/20 Range/Units 07:20 WBC (4.0-10.2) K/uL RBC (3.77-5.09) M/uL Hgb (11.7-15.5) g/dL Hct (34.0-46.0) % MCV (84.0-98.0) fL MCH (28.2-33.3) pg MCHC (31.7-36.0) g/dL RDW (11.2-14.1) % Plt Count (150-350) K/uL Neut % (Auto) (45.0-80.0) % Lymph % (Auto) (10.0-50.0) % [place] % (Auto) (2.0-14.0) % Eos % (Auto) (0.0-5.0) % Baso % (Auto) (0.0-2.0) % Neut # (Auto) (1.40-7.00) K/uL Lymph # (Auto) (0.50-3.50) K/uL [place] # (Auto) (0.00-1.00) K/uL Eos # (Auto) (0.00-0.50) K/uL Baso # (Auto) (0.00-0.20) K/uL PT (9.5-12.0) SEC INR APTT (24.5-32.8) SEC Sodium (136-145) mmol/L Potassium (3.5-5.1) mmol/L Chloride (98-107) mmol/L Carbon Dioxide (21.0-32.0) mmol/L BUN (7-18) mg/dL Creatinine (0.51-1.17) mg/dL Est Cr Clr Drug Dosing mL/min Estimated GFR (MDRD) mL/min Glucose (74-106) mg/dL POC Glucose 94 (65-110) mg/dl Uric Acid (2.6-7.2) mg/dL Calcium (8.5-10.1) mg/dL Magnesium (1.8-2.4) mg/dL Total Bilirubin (0.2-1.0) mg/dL AST (15-37) U/L ALT (12-78) U/L Alkaline Phosphatase (46-116) IU/L Total Protein (6.4-8.2) g/dL Albumin (3.4-5.0) g/dL [facility] Results - Last 24 hrs: None Med Orders - Current: Current Medications Acetaminophen (Tylenol) 650 mg PO Q6H [facility] Last Admin: 01/26/20 09:56 Dose: 650 mg Apixaban (Eliquis) 2.5 mg PO Q12HR [facility] Stop: 02/02/20 08:01 Last Admin: 01/26/20 07:41 Dose: 2.5 mg Ascorbic Acid (Vitamin C) 500 mg PO DAILY [facility] Last Admin: 01/26/20 07:42 Dose: 500 mg Atorvastatin Calcium (Lipitor) 20 mg PO BEDTIME [facility] Last Admin: 01/25/20 19:24 Dose: 20 mg Calcium Carbonate (Caltrate 600+D 1500 Mg-400 Units) 1 tab PO DAILY [facility] Last Admin: 01/26/20 07:42 Dose: 1 tab Carvedilol (Coreg) 12.5 mg PO BIDMEALS [facility] Last Admin: 01/26/20 07:43 Dose: 12.5 mg Cholecalciferol (Vitamin D3) 25 mcg PO DAILY [facility] Last Admin: 01/26/20 07:42 Dose: 25 mcg Escitalopram Oxalate (Lexapro) 10 mg PO DAILY [facility] Last Admin: 01/26/20 07:42 Dose: 10 mg Furosemide (Lasix) 20 mg PO DAILY [facility] Last Admin: 01/26/20 07:42 Dose: 20 mg Glimepiride (Amaryl) 1 mg PO DAILY [facility] Last Admin: 01/26/20 07:42 Dose: 1 mg Losartan Potassium (Cozaar) 50 mg PO DAILY [facility] Last Admin: 01/26/20 07:43 Dose: 50 mg Magnesium Oxide (Magnesium Oxide) 400 mg PO DAILY [facility] Last Admin: 01/26/20 07:42 Dose: 400 mg Multivitamins/Minerals/Vitamin C (Tab-A-Eri) 1 tab PO DAILY [facility] Last Admin: 01/26/20 07:42 Dose: 1 tab Polyethylene Glycol (Miralax) 17 gm PO DAILY PRN PRN Reason: Constipation Senna/Docusate Sodium (Senna Plus) 1 tab PO BID [facility] Last Admin: 01/26/20 07:43 Dose: Not Given Tramadol HCl (Ultram) 50 mg PO Q6HR PRN PRN Reason: PAIN Last Admin: 01/26/20 07:44 Dose: 50 mg Discontinued Medications Acetaminophen (Tylenol) 650 mg PO Q6HR PRN PRN Reason: Pain (mild 1-3) Last Admin: 01/24/20 07:01 Dose: 650 mg Furosemide (Lasix) 20 mg PO DAILY@1600 [facility] Last Admin: 01/21/20 16:21 Dose: 20 mg Ibuprofen (Motrin) 400 mg PO Q6H [facility] Last Admin: 01/25/20 06:06 Dose: Not Given Oxycodone HCl (Oxycodone) 5 - 10 mg PO Q6HR PRN PRN Reason: Moderate to Severe Pain Last Admin: 01/24/20 09:03 Dose: 5 mg - Exam Quality Assessment: Reports: DVT Prophylaxis. Denies: Supplemental Oxygen, Central Line/PICC, Urine Catheter, Skin Breakdown, Restraints General: Reports: Alert, Oriented, Cooperative, No Acute Distress HEENT: Reports: Pupils Equal, Pupils Reactive, EOMI, Mucous Membr. Moist/Cement. Denies: Scleral Icterus Neck: Reports: Supple, Trachea Midline, No JVD, No Thyromegaly. Denies: Lymphadenopathy Lungs: Reports: Clear to Auscultation, Normal Respiratory Effort. Denies: Rub Cardiovascular: Reports: Regular Rate, Regular Rhythm, No Murmurs. Denies: Gallops, Rubs GI/Abdominal Exam: Normal Bowel Sounds, Soft, Non-Tender, No Organomegaly, No Distention, No Abnormal Bruit, No Mass, Pelvis Stable. No: Guarding (Female) Exam: Deferred Rectal (Female) Exam: Deferred Back Exam: Reports: Normal Inspection, Full Range of Motion. Denies: CVA Tenderness (L), CVA Tenderness (R), Muscle Spasm Extremities: No Pedal Edema, Joint Swelling (Improving left knee effusion), Limited Range of Motion (Left Knee with brace in place). No: Eli's Sign Skin: Reports: Ecchymosis (Mild left knee) Wound/Incisions: Reports: Healing Well, No Drainage, Erythema Improving Neurological: Reports: No New Focal Deficit Psy/Mental Status: Reports: Alert, Normal Affect, Normal Mood. Denies: Agitated , Hallucinations, Withdrawal Symptoms *Q Meaningful Use (DIS) - VTE *Q VTE Pharmacological Contraindications *Q: Risk of Bleeding
== END 2020-01-26 14:15 | disposition home or self-care (01) | DRG 561 ==
LOC: LL.MS 12:02 → UNDOADMIN 12:02 → LL.MS 12:50
PROVIDERS: ADMIT Family Medicine; ATTEND Family Medicine
DX: Z47.1 Aftercare following joint replacement surgery (principal); Z96.652 Presence of left artificial knee joint; I10 Essential (primary) hypertension; E11.9 Type 2 diabetes mellitus without complications; E78.5 Hyperlipidemia, unspecified; K59.04 Chronic idiopathic constipation; E83.42 Hypomagnesemia; D64.89 Other specified anemias; E88.09 Other disorders of plasma-protein metabolism, not elsewhere classified; F41.8 Other specified anxiety disorders; Z88.1 Allergy status to other antibiotic agents; Z88.8 Allergy status to other drugs, medicaments and biological substances; Z79.899 Other long term (current) drug therapy; Z79.4 Long term (current) use of insulin
CPT/HCPCS: 36415; 80053; 82962; 83735; 84550; 85025; 85610; 85730; 97110-GO; 97110-GP; 97162-GP; 97165-GO; 97530-GO; 97530-GP; 97535-GO; A9270-GY